=== PATIENT | female | born 1955 | race Caucasian/White ===

== ENCOUNTER 2023-08-17 13:48 | Emergency (ER) | payer MEDICARE, SELFPAY ==
[2023-08-17 14:05] VITALS: BP 142/78; PULSE 65; RESP 16; TEMP 36.6; O2SAT 96; BMI 30.6
--- NOTE | 2023-08-17 14:15 | CT_ITS ---
[address] [address] Patient Name: ELIS WU MRN: [id number] date: 1955 Sex: F Assigned Patient Location: ER Current Patient Location: .[facility] Accession/Order Number: [id number] Exam Date: 08/17/2023 14:26 Report Date: 08/17/2023 15:21 At the request of: ANGELA SLOAN Procedure: CT abdomen pelvis wo con EXAM: CT abdomen pelvis wo con HISTORY: right flank pain, r/o stone COMPARISON: 06/12/2019 TECHNIQUE: Axial CT imaging was performed through the abdomen and pelvis without intravenous contrast. Multiplanar reformats were performed. Dose reduction techniques were achieved by using automated exposure control and/or adjustment of mA and/or kV according to patient size and/or use of iterative reconstruction technique. FINDINGS: Lung bases: Lung bases are clear. No pleural effusion. GI upper: Unremarkable. Liver: The liver is cirrhotic in morphology and contour. Gallbladder: No significant abnormality. No cholelithiasis. Biliary system: No intra or extrahepatic biliary ductal dilatation. Spleen: Normal size. Pancreas: Unremarkable. Adrenal glands: Normal adrenal glands. Kidneys/ureters: Normal contours. There is a 0.4 cm nonobstructing left renal stone. There is a 0.4 cm stone in the urinary bladder, at the right UP junction, resulting in mild right hydroureteronephrosis Vessels: No aneurysm. Lymph Nodes: No lymphadenopathy. Small bowel: No wall thickening or dilatation. Colon: No wall thickening or dilatation. Appendix: No findings of appendicitis. Peritoneal cavity: No free fluid or pneumoperitoneum. Lower : Unremarkable. Bones: No acute bony abnormality. Soft tissues: No acute finding. Additional findings: None. CT/CT abdomen pelvis wo con IMPRESSION: 0.4 cm nonobstructing left renal stone. There is a 0.4 cm stone in the urinary bladder, at the right UP junction, resulting in mild right hydroureteronephrosis Cirrhotic liver. . Electronically authenticated by: JACLYN TIDWELL Date: 08/17/2023 15:21
--- NOTE | 2023-08-17 14:15 | ED.GENADUL1 ---
HPI - General Adult General Chief complaint: Abdominal Pain Stated complaint: KIDNEY PAIN Time Seen by Provider: 08/17/23 14:12 Source: patient Mode of arrival: walk-in Limitations: no limitations History of Present Illness HPI narrative: 68-year-old female presents for right low flank pain. It started at 12:30 PM today, just less than two hours. She was at home. She vomited and then the pain went away completely. She has a history of kidney stones. No recent dysuria or hematuria. Related Data Allergies Allergy/AdvReac Type Severity Reaction Status Date / Time No Known Drug Allergies Allergy Verified 08/17/23 14:08 Review of Systems ROS Narrative A ten point review of systems is negative except as noted above. PFSH PFSH Social History Smoking status: Current every day smoker Exam Narrative Exam Narrative: Nurses note and vital signs reviewed and patient is not hypoxic. General: The patient appears well and in no apparent distress. Patient is resting comfortably on cart. Skin: Warm, dry, no pallor noted. There is no rash noted. Head: Normocephalic, atraumatic Eye: Normal conjunctiva, no drainage Ears, Nose, Mouth, and Throat: oral mucosa is moist. Nares patent. Cardiovascular: Regular Rate and Rhythm Respiratory: Patient is in no distress, no accessory muscle use, lungs are clear to auscultation, no wheezing, rales or rhonchi Back: non-tender, no CVA tenderness bilaterally to percussion. GI: soft and nontender Musculoskeletal: The patient has no evidence of calf tenderness, no pitting edema, symmetrical pulses noted bilaterally Neurological: A&O, normal speech Psychiatric: Cooperative Constitutional Vital Signs, click to edit/add: Last Vital Signs Temp 97.9 F 08/17/23 14:05 Pulse 65 08/17/23 14:05 Resp 16 08/17/23 14:05 BP 142/78 H 08/17/23 14:05 Pulse Ox 96 08/17/23 14:05 O2 Del Method Room Air 08/17/23 14:05 Course Vital Signs Vital signs: Vital Signs Temperature 97.9 F 08/17/23 14:05 Pulse Rate 65 08/17/23 14:05 Respiratory Rate 16 08/17/23 14:05 Blood Pressure 142/78 H 08/17/23 14:05 Pulse Oximetry 96 08/17/23 14:05 Oxygen Delivery Method Room Air 08/17/23 14:05 Temperature 97.9 F 08/17/23 14:05 Pulse Rate 65 08/17/23 14:05 Respiratory Rate 16 08/17/23 14:05 Blood Pressure 142/78 H 08/17/23 14:05 Pulse Oximetry 96 08/17/23 14:05 Oxygen Delivery Method Room Air 08/17/23 14:05 Medical Decision Making MDM Narrative Medical decision making narrative: CAT scan shows 4 mm stone in the urinary bladder. She is asymptomatic and is able to be discharged home. Treatment diagnosis and follow-up were discussed with the patient. Differential Diagnosis Differential Diagnosis: kidney stone, urinary tract infection Lab Data Lab results reviewed: Yes I reviewed the patient's lab results Labs: Lab Results 08/17/23 Range/Units 14:35 Urine Color Yellow (YELLOW) Urine Clarity Slightly cloudy A (CLEAR) Urine pH 6.0 (5.0-9.0) Ur Specific [place] 1.020 (1.005-1.025) Urine Protein Negative (NEG/TRACE) mg/dL Urine Glucose (UA) Negative (NEGATIVE) mg/dL Urine Ketones Trace A (NEGATIVE) mg/dL Urine Occult Blood Large A (NEGATIVE) Urine Nitrite Positive A (NEGATIVE) Urine Bilirubin Negative (NEGATIVE) Urine Urobilinogen 0.2 (0.2-1.0) EU/dL Ur Leukocyte Esterase Negative (NEGATIVE) Urine RBC 20-50 A (0-2) #/HPF Urine WBC 2-5 A (NONE SEEN) #/HPF Ur Squamous Epith Cells Few A (NONE/RARE) #/LPF Urine Crystals None seen (None Seen) #/HPF Urine Bacteria Small A (NONE SEEN) #/HPF Urine Casts None seen (NONE SEEN) #/LPF Urine Mucus None seen (NONE SEEN) Imaging Data CT scan - abdomen: Radiologist's impression: ITS Impressions Abdomen/Pelvis CT 08/17/23 14:15 IMPRESSION: 0.4 cm nonobstructing left renal stone. There is a 0.4 cm stone in the urinary bladder, at the right UP junction, resulting in mild right hydroureteronephrosis Cirrhotic liver. . Electronically authenticated by: JACLYN TIDWELL Date: 08/17/2023 15:21 Discharge Plan Discharge Chief Complaint: Abdominal Pain Clinical Impression: Calculus of kidney Patient Disposition: Home, Self-Care Time of Disposition Decision: 15:50 Condition: Good Mode of Transportation: Private Vehicle Instructions: Kidney Stones (ED) Additional Instructions: follow-up with Dr. Leonard as needed Stand Alone Forms: Portal Instructions Referrals: Physician,Non-Staff, MD [Primary Care Provider] - 1 week
[2023-08-17 14:43] LABS: Bilirubin Urine NEGATIVE (NEGATIVE); Blood Urine LARGE (NEGATIVE); Color Urine YELLOW (YELLOW); Glucose Urine UA NEGATIVE (NEGATIVE); Ketones Urine TRACE mg/dL (NEGATIVE); Leukocyte Esterase Urine NEGATIVE (NEGATIVE); Nitrite Urine POSITIVE (NEGATIVE); Protein Urine NEGATIVE (NEG/TRACE); Urobilinogen Urine 0.2 EU/dL (0.2-1.0)
[2023-08-17 14:48] LABS: Clarity Urine SLIGHTLY CLOUDY (CLEAR)
[2023-08-17 14:50] LABS: Bacteria Urine SMALL #/HPF (NONE SEEN); Cast Seen? NONE SEEN #/LPF (NONE SEEN); Crystals Seen? None Seen #/HPF (None Seen); Mucus Urine NONE SEEN (NONE SEEN); RBC Urine 20-50 #/HPF (0-2); Squamous Epithelial Cell Urine FEW #/LPF (NONE/RARE)
== END 2023-08-17 15:54 | disposition home or self-care (01) ==
PROVIDERS: Emergency Provider Emergency Medicine
DX: N20.0 Calculus of kidney (principal); F17.210 Nicotine dependence, cigarettes, uncomplicated
CPT/HCPCS: 74176; 81001; 99284

== ENCOUNTER 2023-11-27 10:03 | Outpatient (OUT) | payer MEDICARE, SELFPAY ==
--- OUTSIDE RECORDS SUMMARY | 2023-11-27 10:17 | XMS_ITS | CCD ---
Author Organization [facility] Care Team Providers Care Fire Extinguisher Repairer Inspector Name Role Phone NOMI, DR DUSTIN Stovall Attending Unavailable ALMAZAN, DR DUSTIN Stovall Admitting Unavailable ALMAZAN, DR DUSTIN Stovall Primary Care Unavailable ALMAZAN, DR DUSTIN Stovall Consulting Unavailable WEST, DR ELIEL Mtata Consulting Unavailable ALMAZAN, DR DUSTIN Stovall Attending Unavailable ALMAZAN, DR DUSTIN Stovall Admitting Unavailable ALMAZAN, DR DUSTIN Stovall Primary Care Unavailable ALMAZAN, DR DUSTIN Stovall Consulting Unavailable ALMAZAN, DR DUSTIN Stovall Attending Unavailable ALMAZAN, DR DUSTIN Stovall Admitting Unavailable ALMAZAN, DR DUSTIN Stovall Primary Care Unavailable ALMAZAN, DR DUSTIN Stovall Consulting Unavailable HA, ANGELICA Attending Unavailable JUSTUS HAMPTON Consulting Unavailable HA, ANGELICA Admitting Unavailable ALMAZAN, DR DUSTIN Stovall Primary Care Unavailable ALMAZAN, DR DUSTIN Stovall Admitting Unavailable ALMAZAN, DR DUSTIN Stovall Primary Care Unavailable ALMAZAN, DR DUSTIN Stovall Attending Unavailable ALMAZAN, DR DUSTIN Stovall Consulting Unavailable ALMAZAN, DR DUSTIN Stovall Admitting Unavailable ALMAZAN, DR DUSTIN Stovall Primary Care Unavailable ALMAZAN, DR DUSTIN Stovall Consulting Unavailable ALMAZAN, DR DUSTIN Stovall Attending Unavailable Mechelle, Patricia Mcmanus Attending Unavailable Mechelle, Patricia Mcmanus Attending Unavailable Mechelle, Patricia Mcmanus Attending Unavailable Problems Active Problems Problem Classification Problem Date Documented Da te Episodic/Chronic Diabetes mellitus with complications (4 sources) Type 2 diabetes mellitus with unspecified complications; Translations: [TYPE 2 DM W/UNS COMPLICATIONS] Onset: 08-08-2021 Chronic Essential hypertension (5 sources) Essential (primary) hypertension; Translations: [ESSENTIAL PRIMARY HYPERTENSION] Onset: 07-31-2021 Chronic Heart valve disorders (1 source) Nonrheumatic mitral (valve) prolapse; Translations: [NONRHEUMATIC MITRAL VALVE PROLAPSE] Onset: 08-05-2021 Chronic Other aftercare (1 source) Other 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; Translations: [OTH SHELTER CURRENT DRUG THERAPY] Onset: 06-05-2022 Episodic Other skin disorders (3 sources) Localized swelling, mass and lump, neck; Translations: [LOCALIZED SWELLING MASS AND LUMP NECK] Onset: 06-03-2022 Episodic Other skin disorders (1 source) Sebaceous cyst; Translations: [SEBACEOUS CYST] Onset: 06-05-2022 Episodic Substance-related disorders (1 source) Nicotine dependence, cigarettes, uncomplicated; Translations: [NICOTINE DEPEND CIGARETTES UNCOMP] Onset: 06-05-2022 Chronic Past or Other Problems Problem Classification Problem Date Documented Da te Episodic/Chronic Administrative/social admission (1 source) Dietary counseling and surveillance; Translations: [DIETARY COUNSELING AND SURVEILLANCE] Onset: 08-28-2021 Episodic Diabetes mellitus without complication (4 sources) Prediabetes; Translations: [PREDIABETES] Onset: 08-24-2021 Episodic Other screening for suspected conditions (not mental disorders or infectious disease) (4 sources) Other specified abnormal findings of blood chemistry; Translations: [OTH SPEC ABNORMAL FINDINGS BLD CHEM] Onset: 08-13-2021 Episodic Results Test Name Value Interpretation Reference Range Facility [facility] 12-24-2022 Lab Reports [id number] .[id number]:127 Normal [facility] Family Medicine Office/Clini c Noteon 12-16-2022 Family Medicine Office/Clinic Note Chief Complaint est HPI Staff Establish Care: History: Last provider: Dr Almazan Any recent labs: due Health Maintenance UTD: Colonoscopy: due Mammogram: due Pelvic/Pap: due Acute: Current issues/complaints: none Patient is here for follow up on hypertension. How often are you checking your blood pressure? Daily What are your average readings? unsure Do you have any of the following symptoms? Chest Pain? no Palpitations? no SINGER/SOB? no Headache? no Peripheral Edema? no Light Headedness? no Yearly BMP: due Refill needed?: yes History of Present Illness pt presents today to establish care. needs refills on labs Review of Systems PHQ Score Initial Depression Screen Score: 0 ROS - Provider Constitutional: no fever, no chills, no sweats, no fatigue Respiratory: no shortness of breath, no cough, no orthopnea, no wheezing. Cardiovascular: no chest pain, no palpitations, no edema. Neurologic: no headache, no dizziness, no numbness, no weakness. Physical Exam Vitals & Measurements HR: 61(Peripheral) BP: 140/80 SpO2: 80% HT: 64 in HT: 162 cm WT: 84.3 kg WT: 185.46 lb BMI: 32.12 General: alert, no acute distress ENMT: oral mucosa moist, no pharyngeal erythema or exudate Cardiovascular: regular rate and rhythm, normal peripheral perfusion Respiratory: Lungs CTA, respirations non labored Extremities: no deformity, no trauma Neurological: oriented x 4, LOC appropriate for age, CN II-XII intact, motor strength equal & normal bilaterally, speech normal Assessment/Plan 1. Wellness examination (Z00.00: Encounter for general adult medical examination without abnormal findings) pt presents today for wellness exam. She has not had labs since last July. HGBA1C was 6.2 July of 2021. Pt has not had a mammogram or colonoscopy. Lab orders provided as well as mammogram order. pt to return in a couple months for well woman exam with pap test. all questions answered. Ordered: CBC w/ Auto Diff Cologuard Screening Test Comprehensive Metabolic Panel HgbA1c Lipid Panel MA Mamm Screen w/CAD if perf and 3D Adriel Thyroid Stimulating Hormone 2. Pre-diabetes (R73.03: Prediabetes) Pt has been checking her blood sugar and are never above 116 Ordered: CBC w/ Auto Diff Comprehensive Metabolic Panel HgbA1c Lipid Panel MA Mamm Screen w/CAD if perf and 3D Adriel Thyroid Stimulating Hormone 3. Breast cancer screening (Z12.39: Encounter for other screening for malignant neoplasm of breast) has not had a mammogram in many years. order given Ordered: CBC w/ Auto Diff Comprehensive Metabolic Panel HgbA1c Lipid Panel MA Mamm Screen w/CAD if perf and 3D Adriel Thyroid Stimulating Hormone 4. Colon cancer screening (Z12.11: Encounter for screening for malignant neoplasm of colon) cologuard ordered Ordered: Cologuard Screening Test 5. BMI 32.0-32.9,adult (Z68.32: Body mass index [BMI] 32.0-32.9, adult) BMI education complete Ordered: CBC w/ Auto Diff Comprehensive Metabolic Panel HgbA1c Lipid Panel MA Mamm Screen w/CAD if perf and 3D Adriel Thyroid Stimulating Hormone 6. Smoker (F17.200: Nicotine dependence, unspecified, uncomplicated) consider not smoking Ordered: CBC w/ Auto Diff Comprehensive Metabolic Panel HgbA1c Lipid Panel MA Mamm Screen w/CAD if perf and 3D Adriel Thyroid Stimulating Hormone Orders: bisoprolol-hydrochlor othiazide, 1 tab(s), Oral, Daily, 90 tab(s), Refill(s) 3, [facility], 162, cm, 12/03/22 10:59:00 EDT, Height/Length Dosing, 84.3, kg, 12/03/22 10:59:00 EDT, Weight Dosing Follow-up No qualifying data available Problem List/Past Medical History Ongoing Hydronephrosis with obstructing calculus Renal cyst Renal stone Historical panic attacks Procedure/Surgical History C section. Medications bisoprolol-hydrochlor othiazide 5 mg-6.25 mg Tab, 1 tab(s), Oral, Daily, 3 refills sertraline 25 mg Tab, 12.5 mg= 0.5 tab(s), Oral, Daily Allergies No Known Allergies Social History Alcohol - Low Risk, 08/02/2019 Current, 1-2 times per month, 07/05/2019 Substance Abuse - Denies Substance Abuse, 08/02/2019 Tobacco - Medium Risk, 08/02/2019 5-9 cigarettes (between 1/4 to 1/2 pack)/day in last 30 days Tobacco Use:. Never Smokeless Tobacco Use:., 12/03/2022 Hypertension diagnosis to be added I10. refills sent to pharmacy [facility] Comment on above: Result Comment: Elec tronically Signed By: Patricia Gomes\.br\Date and Time Signed: 12/16/22 11:26 EDT Ambulatory Visit Summaryon 0 12-03-2022 Ambulatory Visit Summary DIANAELIS STEPHENS Adi :1955 Visit Date:12/03/2022 Ambulatory Visit Instructions Your Diagnosis Wellness examination Pre-diabetes Breast cancer screening Colon cancer screening BMI 32.0-32.9,adult Smoker Tests Performed MA Mamm Screen w/CAD if perf and 3D Adriel -- Results Pending -- Please visit your patient portal for your results or contact your primary care physician. Your Care Team Attending Physician - Patricia Gomes Primary Care Physician - Patricia Gomes This Is Your Medications List bisoprolol-hydrochlor othiazide (bisoprolol-hydrochlo rothiazide 5 mg-6.25 mg Tab) sertraline (sertraline 25 mg Tab) Procedures Performed C section. Discharge Vitals Heart Rate (Peripheral) 61 Blood Pressure 140/80 Height 162 cm Height 64 in Weight 84.3 kg Weight 185.46 lb BMI 32.12 Medications What How Much When Instructions Changed bisoprolol-hydrochlor othiazide (bisoprolol-hydrochlo rothiazide 5 mg-6.25 mg Tab) 1 Tablets By Mouth Every day Pickup at [facility] Unchanged sertraline (sertraline 25 mg Tab) 0.5 Tablets By Mouth Every day Pharmacy Information [facility]: [address], [place] [phone] [phone] Allergies No Known Allergies Problems Ongoing - Any problem that you are currently receiving treatment for. Hydronephrosis with obstructing calculus Renal cyst Renal stone Historical - Any problem that you are no longer receiving treatment for. panic attacks Normal [facility] HEPATITIS PANEL, ACUTEon HBsAg Screen Negative Normal Negative [facility] Comment on above: Performed By: #### H EPACUT #### [facility] [address] [address] [address] Lobo Flowers Hep A Ab, IgM Negative Normal Negative [facility] Comment on above: Performed By: #### H EPACUT #### [facility] [address] [address] [address] Lobo Flowers Hep B Core Ab, IgM Negative Normal Negative [facility] Comment on above: Performed By: #### H EPACUT #### [facility] [address] [address] [address] Lobo Flowers Hep C Virus Ab <0.1 Normal 0.0-0.9 [facility] Comment on above: Result Comment: Nega tive: < 0.8 Indeterminate: 0.8 - 0.9 Positive: > 0.9 . The CDC recommends that a positive HCV antibody result be followed up with a HCV Nucleic Acid Amplification test (850165). Effective October 08, 2021 Hepatitis Panel (4) will be made non-orderable. [facility] offers order code [id number] Acute Hepatitis. Performed By: #### H EPACUT #### [facility] [address] [address] [address] Lobo Flowers US SINGLE QUAD RT UPPERon US SINGLE QUAD RT UPPER EXAMINATION: US SINGLE QUAD RT UPPER HISTORY: Liver function tests abnormal COMPARISON: 06/12/2019 FINDINGS: The liver is normal in size and contour. Increase in hepatic echotexture. No focal mass. Normal hepatopedal flow within the main portal vein with velocity of 16 cm/s The gallbladder is mildly distended. The wall measures 2.5 mm. Negative sonographic Chance's sign. No cholelithiasis or pericholecystic fluid, bile duct measures 3 mm, normal. Visualized pancreas is normal in appearance The right kidney is normal in size and contour measuring 10.4 x 5.3 x 4.4 cm. Area of anechoic echogenicity measuring 1.3 x 1.3 x 1.2 cm, mid pole, simple cortical cyst. No solid mass or hydronephrosis IMPRESSION: Increase in hepatic echotexture, consider hepatic steatosis 1.3 cm right renal simple cortical cyst Electronically authenticated by: ELIEL ELLER Date: 2021-08-13 07:58 Normal [facility] GLYCOHEMOGLOBIN A1Con 2021 ADA RECOMMENDATION ADA THERAPEUTIC TARGET 6.0 - 7.0 ACTION SUGGESTED > 7.0 Normal [facility] Comment on above: Performed By: #### A 1C #### [facility] [address] [place] [address] Dr. Lobo Flowers Glucose [Mass/Vol] 131 mg/dL Normal [facility] Comment on above: Performed By: #### A 1C #### [facility] [address] [address] [address] Lobo Flowers HbA1c (Bld) [Mass fraction] 6.2 % Critically high <=6.0 [facility] Comment on above: Performed By: #### A 1C #### [facility] [address] [place] [address] Dr. Lobo Flowers CBC AUTO DIFFon 07-31-2021 BASO # 0.1 103/ul Normal 0.0-0.1 [facility] Comment on above: Performed By: #### C BC #### [facility] [address] [place] [address] Dr. Lobo Flowers Basophils/100 WBC (Bld) 0.9 % Normal 0.2-2.0 [facility] Comment on above: Performed By: #### C BC #### [facility] [address] [place] [address] Dr. Lobo Flowers EO # 0.5 103/ul Normal 0.0-0.7 [facility] Comment on above: Performed By: #### C BC #### [facility] [address] [place] [address] Dr. Lobo Flowers Eosinophils/100 WBC (Bld) 5.7 % Normal 0.9-7.0 [facility] Comment on above: Performed By: #### C BC #### [facility] [address] [place] [address] Dr. Lobo Flowers Erythrocyte distribution width (RBC) [Ratio] 13.3 % Normal 11.0-15.0 [facility] Comment on above: Performed By: #### C BC #### [facility] [address] [place] [address] Dr. Lobo Flowers Hematocrit (Bld) [Volume fraction] 44.7 % Normal 36.0-48.0 [facility] Comment on above: Performed By: #### C BC #### [facility] [address] [place] [address] Dr. Lobo Flowers Hemoglobin (Bld) [Mass/Vol] 14.6 g/dL Normal 12.0-16.0 [facility] Comment on above: Performed By: #### C BC #### [facility] [address] [place] [address] Dr. Lobo Flowers IG # 0.02 10e3/ul Normal 0.00-0.03 [facility] Comment on above: Performed By: #### C BC #### [facility] [address] [place] [address] Dr. Lobo Flowers IG % 0.2 % Normal 0.0-0.5 [facility] Comment on above: Performed By: #### C BC #### [facility] [address] [place] [address] Dr. Lobo Flowers LYMPH # 3.1 103/ul Normal 1.2-3.8 [facility] Comment on above: Performed By: #### C BC #### [facility] [address] [place] [address] Dr. Lobo Flowers Lymphocytes/100 WBC (Bld) 36.4 % Normal 20.5-60.0 [facility] Comment on above: Performed By: #### C BC #### [facility] [address] [place] [address] Dr. Lobo Flowers MANUAL DIFF REQ NO Normal [facility] Comment on above: Performed By: #### C BC #### [facility] [address] [place] [address] Dr. Lobo Flowers MCH (RBC) [Entitic mass] 29.7 pg Normal 26.7-34.0 [facility] Comment on above: Performed By: #### C BC #### [facility] [address] [place] [address] Dr. Lobo Flowers MCHC (RBC) [Mass/Vol] 32.7 g/dL Normal 29.9-35.2 [facility] Comment on above: Performed By: #### C BC #### [facility] [address] [place] [address] Dr. Lobo Flowers MCV (RBC) [Entitic vol] 90.9 fL Normal 81.0-99.0 [facility] Comment on above: Performed By: #### C BC #### [facility] [address] [place] [address] Dr. Lobo lFowers MONO # 0.7 103/ul Normal 0.3-0.8 [facility] Comment on above: Performed By: #### C BC #### [facility] [address] [place] [address] Dr. Lobo Flowers Monocytes/100 WBC (Bld) 8.5 % Normal 1.7-12.0 [facility] Comment on above: Performed By: #### C BC #### [facility] [address] [place] [address] Dr. Lobo Flowers NEUT # 4.1 103/ul Normal 1.4-6.5 [facility] Comment on above: Performed By: #### C BC #### [facility] [address] [place] [address] Dr. Lobo Flowers Neutrophils/100 WBC (Bld) 48.3 % Normal 43.0-75.0 [facility] Comment on above: Performed By: #### C BC #### [facility] [address] [place] [address] Dr. Lobo Flowers Platelet mean volume (Bld) [Entitic vol] 9.9 fL Normal 9.5-13.5 [facility] Comment on above: Performed By: #### C BC #### [facility] [address] [place] [address] Dr. Lobo Flowers PLT 206 103/ul Normal 150-450 [facility] Comment on above: Performed By: #### C BC #### [facility] [address] [place] [address] Dr. Lobo Flowers RBC 4.92 106/ul Normal 4.20-5.40 [facility] Comment on above: Performed By: #### C BC #### [facility] [address] [place] [address] Dr. Lobo Flowers WBC 8.6 103/ul Normal 4.0-11.0 [facility] Comment on above: Performed By: #### C BC #### [facility] [address] [place] [address] Dr. Lobo Flowers LIPID PROFILEon 07-31-2021 CHOL-HDL RATIO NORM SEE BELOW Normal [facility] Comment on above: Result Comment: 3.3 - 4.4 LOW RISK 4.4 - 7.1 AVERAGE RISK 7.1 - 11.0 MODERATE RISK >11.0 HIGH RISK Performed By: #### C MP, LIPID #### [facility] [address] [place] [address] Dr. Lobo Flowers Cholesterol [Mass/Vol] 210 mg/dL Critically high <=200 [facility] Comment on above: Performed By: #### C MP, LIPID #### [facility] [address] [address] [address] Lobo Flowers Cholesterol in HDL [Mass/Vol] 41 mg/dL Normal [facility] Comment on above: Performed By: #### C MP, LIPID #### [facility] [address] [address] [address] Lobo Flowers Cholesterol in LDL [Mass/Vol] 143.8 mg/dL Normal [facility] Comment on above: Performed By: #### C MP, LIPID #### [facility] [address] [address] [address] Lobo Flowers Cholesterol.total/Cho lesterol in HDL [Mass ratio] 5.1 {ratio} Normal [facility] Comment on above: Performed By: #### C MP, LIPID #### [facility] [address] [address] [address] Lobo Flowers HDL NORMAL > or = 60 mg/dl - LO W CARDIOVASCULAR RISK <40 mg/dl - HIGH CARDIOVASCULAR RISK Normal [facility] Comment on above: Performed By: #### C MP, LIPID #### [facility] [address] [place] [address] Dr. Lobo Flowers LDL CALC NORMAL SEE BELOW Normal [facility] Comment on above: Result Comment: <100 mg/dl OPTIMAL 100 - 129 mg/dl NEAR OR ABOVE OPTIMAL 130 - 159 mg/dl BORDERLINE HIGH 160 - 189 mg/dl HIGH >190 mg/dl VERY HIGH Performed By: #### C MP, LIPID #### [facility] [address] [address] [address] Lobo Flowers Triglyceride [Mass/Vol] 126 mg/dL Normal <=150 [facility] Comment on above: Performed By: #### C MP, LIPID #### [facility] [address] [address] [address] Lobo Flowers VLDL CALC 25.2 mg/dL Normal [facility] Comment on above: Performed By: #### C MP, LIPID #### [facility] [address] [address] [address] Lobo Flowers PROF 14(COMP METB)on 022 Albumin [Mass/Vol] 3.4 g/dL Critically low 3.5-5.0 [facility] Comment on above: Performed By: #### C MP, LIPID #### [facility] [address] [address] [address] Lobo Flowers Albumin/Globulin [Mass ratio] 0.7 {ratio} Normal [facility] Comment on above: Performed By: #### C MP, LIPID #### [facility] [address] [address] [address] Lobo Flowers ALP [Catalytic activity/Vol] 104 U/L Normal 38-126 [facility] Comment on above: Performed By: #### C MP, LIPID #### [facility] [address] [address] [address] Lobo Flowers ALT [Catalytic activity/Vol] 58 U/L Critically high 9-52 [facility] Comment on above: Performed By: #### C MP, LIPID #### [facility] [address] [address] [address] Lobo Flowers Anion gap [Moles/Vol] 10.4 mmol/L Normal [facility] Comment on above: Performed By: #### C MP, LIPID #### [facility] [address] [address] [address] Lobo Flowers AST [Catalytic activity/Vol] 59 U/L Critically high 14-36 [facility] Comment on above: Performed By: #### C MP, LIPID #### [facility] [address] [address] [address] Lobo Flowers Bilirubin [Mass/Vol] 0.7 mg/dL Normal 0.2-1.3 [facility] Comment on above: Performed By: #### C MP, LIPID #### [facility] [address] [address] [address] Lobo Flowers Calcium [Mass/Vol] 10.7 mg/dL Critically high 8.4-10.2 [facility] Comment on above: Performed By: #### C MP, LIPID #### [facility] [address] [address] [address] Lobo Flowers Chloride [Moles/Vol] 99 mmol/L Normal 98-107 [facility] Comment on above: Performed By: #### C MP, LIPID #### [facility] [address] [address] [address] Lobo Flowers CO2 [Moles/Vol] 32.4 mmol/L Critically high 22.0-30.0 [facility] Comment on above: Performed By: #### C MP, LIPID #### [facility] [address] [address] [address] Lobo Flowers Creatinine [Mass/Vol] 0.78 mg/dL Normal 0.52-1.04 [facility] Comment on above: Performed By: #### C MP, LIPID #### [facility] [address] [place] [address] Dr. Lobo Flowers EGFR-AF BANGLADESHI >60 Normal >=60 [facility] Comment on above: Performed By: #### C MP, LIPID #### [facility] [address] [address] [address] Lobo Flowers EGFR-NON AF BANGLADESHI >60 Normal >=60 [facility] Comment on above: Performed By: #### C MP, LIPID #### [facility] [address] [address] [address] Lobo Flowers Globulin (S) [Mass/Vol] 5.0 g/dL Normal [facility] Comment on above: Performed By: #### C MP, LIPID #### [facility] [address] [address] [address] Lobo Flowers Glucose [Mass/Vol] 146 mg/dL Critically high 74-106 [facility] Comment on above: Performed By: #### C MP, LIPID #### [facility] [address] [address] [address] Lobo Flowers Potassium [Moles/Vol] 3.8 mmol/L Normal 3.4-5.0 [facility] Comment on above: Performed By: #### C MP, LIPID #### [facility] [address] [address] [address] Lobo Flowers Protein [Mass/Vol] 8.4 g/dL Critically high 6.1-8.2 [facility] Comment on above: Performed By: #### C MP, LIPID #### [facility] [address] [address] [address] Lobo Flowers Sodium [Moles/Vol] 138 mmol/L Normal 137-145 [facility] Comment on above: Performed By: #### C MP, LIPID #### [facility] [address] [address] [address] Lobo Flowers Urea nitrogen [Mass/Vol] 11.0 mg/dL Normal 7.0-17.0 [facility] Comment on above: Performed By: #### C MP, LIPID #### [facility] [address] [address] [address] Lobo Flowers Urea nitrogen/Creatinine [Mass ratio] 14.1 mg/mg Normal [facility] Comment on above: Performed By: #### C MP, LIPID #### [facility] [address] [address] [address] Lobo Flowers Encounters Encounter Date Encounter Type Care Provider Facility Start: 12-02-2023 ambulatory Patricia L Mechelle Facility: [facility] [place] Start: 03-25-2023 ambulatory Patricia L Mechelle Facility: [facility] [place] Start: 12-03-2022 End: 12-04-2022 ambulatory [facility]helle [facility] Start: 11-25-2022 ambulatory Patricia Mechelle Facility:[facility] [place] Start: 06-03-2022 End: 06-03-2022 ambulatory ANGELICA BONNER Facility:[facility] Start: 08-24-2021 End: 08-25-[address] DUSTIN ALMAZAN Facility:[facility] Start: 08-13-2021 End: 08-14-[address] DUSTIN ALMAZAN Facility:[facility] Start: 08-13-2021 End: 08-14-[address] DUSTIN ALMAZAN Facility:[facility] Start: 08-08-2021 End: 08-09-[address] DUSTIN ALMAZAN Facility:[facility] Start: 07-31-2021 End: 08-01-[address] DUSTIN ALMAZAN Facility:[facility] Payers Date Payer Category Payer Medicare [id number] 1959 Private Health Insurance CLI [id number] 1955 Unknown [id number] 2.16.84 [id number] 1956 Unknown [id number] 2.16.84 0.1.766909.3.579.2.593 1956 Unknown [id number] 2.16.84 0.1.795200.3.579.2.593 1956 Unknown [id number] 2.16.84 0.1.575584.3.579.2.593 1956 Unknown [id number] 2.16.84 0.1.638353.3.579.2.593 1956 Unknown [id number] 2.16.84 0.1.913738.3.579.2.593 1956 Unknown [id number] 2.16.8 40.1.904927.3.579.2.727 1956 Unknown [id number] 2.16.8 40.1.069522.3.579.2.727 1956 Unknown [id number] 2.16.8 40.1.826671.3.579.2.727 Summary Purpose Family History No Family History Records FoundNo Family History Records Found Advance Directives No Advanced Directives Records FoundNo Advanced Directives Records Found Additional Source Comments INFORMATION SOURCE (unrecogn ized section and content) DATE CREATED AUTHOR 06/05/2022 [facility] DATE CREATED AUTHOR AUTHOR'S ORGANIZ ATION 11/25/2023 [facility] FOR RECORDS PERTAINING TO PATIENTS WHO ARE OR HAVE BEEN ENROLLED IN A CHEMICAL DEPENDENCY/SUBSTANCEABUSE PROGRAM, SOME INFORMATION MAY BE OMITTED. This clinical summary was aggregated from multiple sources. Caution should be exercised in using it in the provision of clinical care. This summary normalizes information from multiple sources, and as a consequence, information in this document may materially change the coding, format and clinical context of patient data. In addition, data may be omitted in some cases. CLINICAL DECISIONS SHOULD BE BASED ON THE PRIMARY CLINICAL RECORDS. [facility]. provides no warranty or guarantee of the accuracy or completeness of information in this document.
[2023-11-27 11:07] LABS: Basophils Absolute Auto 0.1 10^3/uL (0.0-0.1); Basophils Percent Auto 1.1 % (0.2-2.0); Eosinophils Absolute Auto 0.5 10^3/uL (0.0-0.7); Eosinophils Percent Auto 7.6 % (0.9-7.0); Hematocrit 42.6 % (36.0-48.0); Hemoglobin 14.1 g/dL (12.0-16.0); Immature Granulocytes Abs Auto 0.02 10^3/uL (0.00-0.03); Immature Granulocytes Pct Auto 0.3 % (0.0-0.5); Lymphocytes Absolute Auto 2.2 10^3/uL (1.2-3.8); Lymphocytes Percent Auto 34.7 % (20.5-60.0); Mean Corpuscular HGB Conc 33.1 g/dL (29.9-35.2); Mean Corpuscular Hemoglobin 29.9 pg (26.7-34.0); Mean Corpuscular Volume 90.4 fL (81.0-99.0); Mean Platelet Volume 9.9 fL (9.5-13.5); Monocytes Absolute Auto 0.7 10^3/uL (0.3-0.8); Monocytes Percent Auto 10.9 % (1.7-12.0); Neutrophils Absolute Auto 2.9 10^3/uL (1.4-6.5); Neutrophils Percent Auto 45.4 % (43.0-75.0); Platelet Count 175 10^3/uL (150-450); Red Blood Count 4.71 10^6/uL (4.20-5.40); Red Cell Distribution Width 13.1 % (11.0-15.0); White Blood Count 6.3 10^3/uL (4.0-11.0)
[2023-11-27 11:26] LABS: Alanine Aminotransferase 36 U/L (14-59); Albumin Globulin Ratio 0.8; Albumin Level 3.4 g/dL (3.4-5.0); Alkaline Phosphatase 90 U/L (46-116); Anion Gap 10.1; Aspartate Amino Transferase 27 U/L (15-37); Bilirubin Total 1.1 mg/dL (0.2-1.0); Calcium 10.4 mg/dL (8.5-10.1); Carbon Dioxide 29.7 mmol/L (21.0-32.0); Chloride 104 mmol/L (98-107); Chol HDL Ratio 4.2; Cholesterol 197 mg/dL (<=200); Estimated GFR (African America >60 (>=60); Estimated GFR (Non-African Ame >60 (>=60); Globulin 4.5 g/dL; Glucose 108 mg/dL (74-106); HDL Cholesterol 47 mg/dL (40-60); LDL Cholesterol Calculated 127.8 mg/dL; Potassium 3.8 mmol/L (3.5-5.1); Sodium 140 mmol/L (136-145); Thyroid Stimulating Hormone 4.628 uIU/mL (0.358-3.740); Total Protein 7.9 g/dL (6.4-8.2); Triglycerides 111 mg/dL (<=150); VLDL CHOLESTEROL 22.2 mg/dL
== END 2023-11-27 10:04 | disposition home or self-care (01) ==
LOC: LAB 10:07
PROVIDERS: Visit Provider Nurse Practitioner
DX: Z00.00 Encounter for general adult medical examination without abnormal findings (principal)
CPT/HCPCS: 36415; 80053; 80061; 84443; 85025

== ENCOUNTER 2024-01-04 10:11 | Emergency (ER) | payer MEDICARE, SELFPAY ==
--- NOTE | 2024-01-04 10:16 | XR_ITS ---
The [address] [address] Patient Name: ELIS WU MRN: [id number] date: 1955 Sex: F Assigned Patient Location: ER Current Patient Location: ER Accession/Order Number: [id number] Exam Date: 01/04/2024 10:23 Report Date: 01/04/2024 11:08 At the request of: LEXII GREEN Procedure: XR ankle LT min 3V PROCEDURE: XR ankle LT min 3V, 01/04/2024 10:23 AM EDT CLINICAL INDICATIONS: Left ankle pain, injury, previous fracture COMPARISON: 03/06/2021 TECHNIQUE: Left ankle, 3 views FINDINGS: Remote distal fibular metaphysis fracture with bridging callus is seen. Minimal residual lucency is present near the fracture although similar in morphology to prior. Convincing superimposed acute fracture is not demonstrated. Remaining osseous structures are intact. Ossific irregularity involving the anterior process of the distal tibia is similar to previous exam and may relate to previous traumatic deformity as well. Moderate ankle osteoarthrosis is noted. Calcaneal enthesopathy noted. Well-corticated ossicle medial tibiotalar joint level is stable, considered remote. Ankle mortise intact. Ankle effusion is seen. XR/XR ankle LT min 3V IMPRESSION: 1. Remote traumatic deformity of the distal fibula, anterior tibial articular margin. Convincing superimposed fracture is not evident. If pain persists follow-up imaging may be helpful for confirmation. 2. 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 Osteoarthrosis 4. Joint effusion, anterior lateral soft tissue swelling 5. Calcaneal enthesopathy Electronically authenticated by: GIL ARIAS Date: 01/04/2024 11:08
--- OUTSIDE RECORDS SUMMARY | 2024-01-04 10:16 | XMS_ITS | CCD ---
Author Organization [facility] Care Team Providers Care Vp Integration Name Role Phone NOMI, DR DUSTIN Stovall Attending Unavailable MOSHER, DR DUSTIN Stovall Admitting Unavailable MOSHER, DR DUSTIN Stovall Primary Care Unavailable MOSHER, DR DUSTIN Stovall Consulting Unavailable WEST, DR ELIEL Matta Consulting Unavailable MOSHER, DR DUSTIN Stovall Attending Unavailable MOSHER, DR DUSTIN Stovall Admitting Unavailable MOSHER, DR DUSTIN Stovall Primary Care Unavailable MOSHER, DR DUSTIN Stovall Consulting Unavailable MOSHER, DR DUSTIN Stovall Attending Unavailable MOSHER, DR DUSTIN Stovall Admitting Unavailable MOSHER, DR DUSTIN Stovall Primary Care Unavailable MOSHER, DR DUSTIN Stovall Consulting Unavailable ANGELICA BONNER Attending Unavailable JUSTUS HAMPTON Consulting Unavailable HA, ANGELICA Admitting Unavailable MOSHER, DR DUSTIN Stovall Primary Care Unavailable MOSHER, DR DUSTIN Stovall Admitting Unavailable MOSHER, DR DUSTIN Stovall Primary Care Unavailable MOSHER, DR DUSTIN Stovall Attending Unavailable MOSHER, DR DUSTIN Stovall Consulting Unavailable MOSHER, DR DUSTIN Stovall Admitting Unavailable MOSHER, DR DUSTIN Stovall Primary Care Unavailable MOSHER, DR DUSTIN Stovall Consulting Unavailable MOSHER, DR DUSTIN Stovall Attending Unavailable Mechelle, Patricia [...] 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; 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] Onset: 06-05-2022 Episodic Other [...] Value Interpretation Reference Range Facility [facility] 12-23-2023 Lab Reports [id number] #[id number] Normal [facility] Ambulatory Visit Summaryon 0 12-02-2023 Ambulatory Visit Summary ALTAGRACIA WU Adi :1955 Visit Date:12/02/2023 Ambulatory Visit Instructions Your Diagnosis Hypertension Depression TSH elevation BMI 32.0-32.9,adult Your Care Team Attending Physician - Patricia Gomes Primary Care Physician - Patricia Gomes This Is Your Medications List bisoprolol-hydrochlo rothiazide (bisoprolol-hydrochl orothiazide 5 mg-6.25 mg Tab) sertraline (sertraline 25 mg Tab) Procedures Performed C section. Discharge Vitals Heart Rate (Peripheral) 68 Respiratory Rate 18 Blood Pressure 120/70 Height 162.0 cm Height 64 in Weight 85.05 kg Weight 187.11 lb BMI 32.41 What to do next Scheduled Follow-Up Appointments Friday 1:00 PM EDT Where: [facility] Medicine Marcelino Invalid Interpretation Code Depression [facility] Medicine Office/Clini c Noteon 12-02-2023 Family Medicine Office/Clinic Note HPI Staff Altagracia is a 68 year old female presenting follow up Patient is here for follow up on hypertension. How often are you checking your blood pressure? 1-2 every 2 weeks What are your average readings? 120's-130's/ 8-0's Follow up for Mental Status: Medication adherence- Yes, takes medication as prescribed Suicidal thoughts-Not at this time Most recent PHQ: 5 Needs refill on bisoprolol-HCTZ Would like to go over labs from 11/27/23 had done at [facility] History of Present Illness pt presents today for med refills. Review of Systems PHQ Score Initial Depression Screen Score: 1 SCORE Physical Exam Vitals & Measurements HR: 68(Peripheral) RR: 18 BP: 120/70 SpO2: 98% HT: 64 in HT: 162.0 cm WT: 85.05 kg WT: 187.11 lb BMI: 32.41 General: alert, no acute distress ENMT: oral mucosa moist, no pharyngeal erythema or exudate Cardiovascular: regular rate and rhythm, normal peripheral perfusion Respiratory: Lungs CTA, respirations non labored Extremities: no deformity, no trauma Neurological: oriented x 4, LOC appropriate for age, CN II-XII intact, motor strength equal & normal bilaterally, speech normal Assessment/Plan 1. Hypertension (I10: Essential (primary) hypertension) BP at goal today. will send refills. pt had labs done at [facility]. discussed those results today. TSH was slightly elevated but pt is not having any symptoms at all. will recheck at AM[facility] visit in February all questions answered. RTC 1 year Ordered: nicotine, 1 patch(es), Topical, Daily, 30 EA, Refill(s) 0, [facility], 162, cm, 12/02/23 11:18:00 EDT, Height/Length Dosing, 85, kg, 12/02/23 11:18:00 EDT, Weight Dosing nicotine, 1 patch(es), Topical, Daily, 30 EA, Refill(s) 0, [facility], 162, cm, 12/02/23 11:18:00 EDT, Height/Length Dosing, 85, kg, 12/02/23 11:18:00 EDT, Weight Dosing nicotine, 1 patch(es), Topical, Daily for 30 day(s), 30 patch(es), Refill(s) 0, [facility], 162, cm, 12/02/23 11:18:00 EDT, Height/Length Dosing, 85, kg, 12/02/23 11:18:00 EDT, Weight Dosing nitrofurantoin, 100 mg = 1 cap(s), Oral, BID, X 7 day(s), # 14 cap(s), Refills(s) 0, Pharmacy: [facility], 162, cm, 12/02/23 11:18:00 EDT, Height/Length Dosing, 85, kg, 12/02/23 11:18:00 EDT, Weight Dosing TSH With T4fr Reflex 2. Depression (F32.A: Depression, unspecified) will send refills. pt doing well Ordered: nicotine, 1 patch(es), Topical, Daily, 30 EA, Refill(s) 0, [facility], 162, cm, 12/02/23 11:18:00 EDT, Height/Length Dosing, 85, kg, 12/02/23 11:18:00 EDT, Weight Dosing nicotine, 1 patch(es), Topical, Daily, 30 EA, Refill(s) 0, [facility], 162, cm, 12/02/23 11:18:00 EDT, Height/Length Dosing, 85, kg, 12/02/23 11:18:00 EDT, Weight Dosing nicotine, 1 patch(es), Topical, Daily for 30 day(s), 30 patch(es), Refill(s) 0, [facility], 162, cm, 12/02/23 11:18:00 EDT, Height/Length Dosing, 85, kg, 12/02/23 11:18:00 EDT, Weight Dosing nitrofurantoin, 100 mg = 1 cap(s), Oral, BID, X 7 day(s), # 14 cap(s), Refills(s) 0, Pharmacy: [facility], 162, cm, 12/02/23 11:18:00 EDT, Height/Length Dosing, 85, kg, 12/02/23 11:18:00 EDT, Weight Dosing TSH With T4fr Reflex 3. TSH elevation (R79.89: Other specified abnormal findings of blood chemistry) TSH slightly elevated. will redraw at AM[facility] visit Ordered: nicotine, 1 patch(es), Topical, Daily, 30 EA, Refill(s) 0, [facility], 162, cm, 12/02/23 11:18:00 EDT, Height/Length Dosing, 85, kg, 12/02/23 11:18:00 EDT, Weight Dosing nicotine, 1 patch(es), Topical, Daily, 30 EA, Refill(s) 0, [facility], 162, cm, 12/02/23 11:18:00 EDT, Height/Length Dosing, 85, kg, 12/02/23 11:18:00 EDT, Weight Dosing nicotine, 1 patch(es), Topical, Daily for 30 day(s), 30 patch(es), Refill(s) 0, [facility], 162, cm, 12/02/23 11:18:00 EDT, Height/Length Dosing, 85, kg, 12/02/23 11:18:00 EDT, Weight Dosing nitrofurantoin, 100 mg = 1 cap(s), Oral, BID, X 7 day(s), # 14 cap(s), Refills(s) 0, Pharmacy: [facility], 162, cm, 12/02/23 11:18:00 EDT, Height/Length Dosing, 85, kg, 12/02/23 11:18:00 EDT, Weight Dosing TSH With T4fr Reflex 4. BMI 32.0-32.9,adult (Z68.32: Body mass index [BMI] 32.0-32.9, adult) BMI education complete Ordered: nicotine, 1 patch(es), Topical, Daily, 30 EA, Refill(s) 0, [facility], 162, cm, 12/02/23 11:18:00 EDT, Height/Length Dosing, 85, kg, 12/02/23 11:18:00 EDT, Weight Dosing nicotine, 1 patch(es), Topical, Daily, 30 EA, Refill(s) 0, [facility], 162, cm, 12/02/23 11:18:00 EDT, Height/Length Dosing, 85, kg, 12/02/23 11:18:00 EDT, Weight Dosing nicotine, 1 patch(es), Topical, Daily for 30 day(s), 30 patch(es), Refill(s) 0, [facility], 162, cm, 12/02/23 11:18:00 EDT, Height/Length Dosing, 85, kg, 12/02/23 11:18:00 EDT, Weight Dosing nitrofurantoin, 100 mg = 1 cap(s), Oral, BID, X 7 day(s), # 14 cap(s), Refills(s) 0, Pharmacy: [facility], 162, cm, 12/02/23 11:18:00 EDT, Height/Length Dosing, 85, (more content not included)... Normal [facility] Comment on above: Result Comment: Elec tronically Signed By: Mechelle DUMAS, Patricia Mcmanus\.br\Date and Time Signed: 12/02/23 12:36 EDT HEPATITIS PANEL, ACUTEon HBsAg Screen Negative Normal Negative [facility] Comment on above: Performed By: #### H EPACUT #### [facility] [address] [address] [address] Lobo Flowers Hep A Ab, IgM Negative Normal Negative [facility] Comment on above: Performed By: #### H EPACUT #### [facility] [address] [address] [address] Lobo Flowers Hep B Core Ab, IgM Negative Normal Negative [facility] Comment on above: Performed By: #### H EPACUT #### [facility] [address] [address] [address] Lobo Flowers Hep C Virus Ab <0.1 Normal 0.0-0.9 [facility] Comment on above: Result Comment: Nega tive: < 0.8 Indeterminate: 0.8 - 0.9 Positive: > 0.9 . The CDC recommends that a positive HCV antibody result be followed up with a HCV Nucleic Acid Amplification test (794590). Effective October 08, 2021 Hepatitis Panel (4) will be made non-orderable. [facility] offers order code [id number] Acute Hepatitis. Performed By: #### H EPACUT #### [facility] [address] [address] [address] Lobo Flowers US SINGLE QUAD RT [...] by: ELIEL ELLER Date: 2021-08-13 07:58 Normal [facility] GLYCOHEMOGLOBIN A1Con 2021 ADA RECOMMENDATION ADA THERAPEUTIC TARGET 6.0 - 7.0 ACTION SUGGESTED > 7.0 Normal [facility] Comment on above: Performed By: #### A 1C #### [facility] [address] [address] [address] Lobo Flowers Glucose [Mass/Vol] 131 mg/dL Normal [facility] Comment on above: Performed By: #### A 1C #### [facility] [address] [address] [address] Lobo Flowers HbA1c (Bld) [Mass fraction] 6.2 % Critically high <=6.0 [facility] Comment on above: Performed By: #### A 1C #### [facility] [address] [address] [address] Lobo Flowers CBC AUTO DIFFon 07-31-2021 BASO # 0.1 103/ul Normal 0.0-0.1 [facility] Comment on above: Performed By: #### C BC #### [facility] [address] [address] [address] Lobo Flowers Basophils/100 WBC (Bld) 0.9 % Normal 0.2-2.0 [facility] Comment on above: Performed By: #### C BC #### [facility] [address] [place] [address] Dr. Lobo Flowers EO # 0.5 103/ul Normal 0.0-0.7 [facility] Comment on above: Performed By: #### C BC #### [facility] [address] [place] [address] Dr. Lobo Flowers Eosinophils/100 WBC (Bld) 5.7 % Normal 0.9-7.0 [facility] Comment on above: Performed By: #### C BC #### [facility] [address] [place] [address] Dr. Lobo Flowers Erythrocyte distribution width (RBC) [Ratio] 13.3 % Normal 11.0-15.0 [facility] Comment on above: Performed By: #### C BC #### [facility] [address] [place] [address] Dr. Lobo Flowers Hematocrit (Bld) [Volume fraction] 44.7 % Normal 36.0-48.0 [facility] Comment on above: Performed By: #### C BC #### [facility] [address] [place] [address] Dr. Lobo Flowers Hemoglobin (Bld) [Mass/Vol] 14.6 g/dL Normal 12.0-16.0 [facility] Comment on above: Performed By: #### C BC #### [facility] [address] [place] [address] Dr. Lobo Flowers IG # 0.02 10e3/ul Normal 0.00-0.03 [facility] Comment on above: Performed By: #### C BC #### [facility] [address] [place] [address] Dr. Lobo Flowers IG % 0.2 % Normal 0.0-0.5 [facility] Comment on above: Performed By: #### C BC #### [facility] [address] [place] [address] Dr. Lobo Flowers LYMPH # 3.1 103/ul Normal 1.2-3.8 [facility] Comment on above: Performed By: #### C BC #### [facility] [address] [place] [address] Dr. Lobo Flowers Lymphocytes/100 WBC (Bld) 36.4 % Normal 20.5-60.0 [facility] Comment on above: Performed By: #### C BC #### [facility] [address] [place] [address] Dr. Lobo Flowers MANUAL DIFF REQ NO Normal [facility] Comment on above: Performed By: #### C BC #### [facility] [address] [place] [address] Dr. Lobo Flowers MCH (RBC) [Entitic mass] 29.7 pg Normal 26.7-34.0 [facility] Comment on above: Performed By: #### C BC #### [facility] [address] [place] [address] Dr. Lobo Flowers MCHC (RBC) [Mass/Vol] 32.7 g/dL Normal 29.9-35.2 [facility] Comment on above: Performed By: #### C BC #### [facility] [address] [place] [address] Dr. Lobo Flowers MCV (RBC) [Entitic vol] 90.9 fL Normal 81.0-99.0 [facility] Comment on above: Performed By: #### C BC #### [facility] [address] [place] [address] Dr. Lobo Flowers MONO # 0.7 103/ul Normal 0.3-0.8 [facility] Comment on above: Performed By: #### C BC #### [facility] [address] [place] [address] Dr. Lobo Flowers Monocytes/100 WBC (Bld) 8.5 % Normal 1.7-12.0 [facility] Comment on above: Performed By: #### C BC #### [facility] [address] [place] [address] Dr. Lobo Flowers NEUT # 4.1 103/ul Normal 1.4-6.5 [facility] Comment on above: Performed By: #### C BC #### [facility] [address] [place] [address] Dr. Lobo Flowers Neutrophils/100 WBC (Bld) 48.3 % Normal 43.0-75.0 [facility] Comment on above: Performed By: #### C BC #### [facility] [address] [address] [address] Lobo Flowers Platelet mean volume (Bld) [Entitic vol] 9.9 fL Normal 9.5-13.5 [facility] Comment on above: Performed By: #### C BC #### [facility] [address] [place] [address] Dr. Lobo Flowers PLT 206 103/ul Normal 150-450 [facility] Comment on above: Performed By: #### C BC #### [facility] [address] [place] [address] Dr. Lobo Flowers RBC 4.92 106/ul Normal 4.20-5.40 [facility] Comment on above: Performed By: #### C BC #### [facility] [address] [place] [address] Dr. Lobo Flowers WBC 8.6 103/ul Normal 4.0-11.0 [facility] Comment on above: Performed By: #### C BC #### [facility] [address] [place] [address] Dr. Lobo Flowers LIPID PROFILEon 07-31-2021 CHOL-HDL RATIO NORM SEE BELOW Normal [facility] Comment on above: Result Comment: 3.3 - 4.4 LOW RISK 4.4 - 7.1 AVERAGE RISK 7.1 - 11.0 MODERATE RISK >11.0 HIGH RISK Performed By: #### C MP, LIPID #### [facility] [address] [place] [address] Dr. Lobo Flowers Cholesterol [Mass/Vol] 210 mg/dL Critically high <=200 [facility] Comment on above: Performed By: #### C MP, LIPID #### [facility] [address] [address] [address] Lobo Flowers Cholesterol in HDL [Mass/Vol] 41 mg/dL Normal [facility] Comment on above: Performed By: #### C MP, LIPID #### [facility] [address] [place] [address] Dr. Lobo Flowers Cholesterol in LDL [Mass/Vol] 143.8 mg/dL Normal [facility] Comment on above: Performed By: #### C MP, LIPID #### [facility] [address] [place] [address] Dr. Lobo Flowers Cholesterol.total/Ch olesterol in HDL [Mass ratio] 5.1 {ratio} Normal [facility] Comment on above: Performed By: #### C MP, LIPID #### [facility] [address] [place] [address] Dr. Lobo Flowers HDL NORMAL > or = 60 mg/dl - LOW CARDIOVASCULAR RISK <40 mg/dl - HIGH CARDIOVASCULAR RISK Normal [facility] Comment on above: Performed By: #### C MP, LIPID #### [facility] [address] [place] [address] Dr. Lobo Flowers LDL CALC NORMAL SEE BELOW Normal [facility] Comment on above: Result Comment: <100 mg/dl OPTIMAL 100 - 129 mg/dl NEAR OR ABOVE OPTIMAL 130 - 159 mg/dl BORDERLINE HIGH 160 - 189 mg/dl HIGH >190 mg/dl VERY HIGH Performed By: #### C MP, LIPID #### [facility] [address] [place] [address] Dr. Lobo Flowers Triglyceride [Mass/Vol] 126 mg/dL Normal <=150 [facility] Comment on above: Performed By: #### C MP, LIPID #### [facility] [address] [place] [address] Dr. Lobo Flowers VLDL CALC 25.2 mg/dL Normal [facility] Comment on above: Performed By: #### C MP, LIPID #### [facility] [address] [place] [address] Dr. Lobo Flowers PROF 14(COMP METB)on 022 Albumin [Mass/Vol] 3.4 g/dL Critically low 3.5-5.0 Th [facility] Comment on above: Performed By: #### C MP, LIPID #### [facility] [address] [address] [address] Lobo Flowers Albumin/Globulin [Mass ratio] 0.7 {ratio} Normal [facility] Comment on above: Performed By: #### C MP, LIPID #### [facility] [address] [address] [address] Lobo Flowers ALP [Catalytic activity/Vol] 104 U/L Normal 38-126 [facility] Comment on above: Performed By: #### C MP, LIPID #### [facility] [address] [place] [address] Dr. Lobo Flowers ALT [Catalytic activity/Vol] 58 U/L Critically high 9-52 [facility] Comment on above: Performed By: #### C MP, LIPID #### [facility] [address] [place] [address] Dr. Lobo Flowers Anion gap [Moles/Vol] 10.4 mmol/L Normal [facility] Comment on above: Performed By: #### C MP, LIPID #### [facility] [address] [place] [address] Dr. Lobo Flowers AST [Catalytic activity/Vol] 59 U/L Critically high 14-36 [facility] Comment on above: Performed By: #### C MP, LIPID #### [facility] [address] [address] [address] Lobo Flowers Bilirubin [Mass/Vol] 0.7 mg/dL Normal 0.2-1.3 [facility] Comment on above: Performed By: #### C MP, LIPID #### [facility] [address] [address] [address] Lobo Flowers Calcium [Mass/Vol] 10.7 mg/dL Critically high 8.4-10.2 T [facility] Comment on above: Performed By: #### C MP, LIPID #### [facility] [address] [address] [address] Lobo Flowers Chloride [Moles/Vol] 99 mmol/L Normal 98-107 [facility] Comment on above: Performed By: #### C MP, LIPID #### [facility] [address] [place] [address] Dr. Lobo Flowers CO2 [Moles/Vol] 32.4 mmol/L Critically high 22.0-30.0 [facility] Comment on above: Performed By: #### C MP, LIPID #### [facility] [address] [address] [address] Lobo Flowers Creatinine [Mass/Vol] 0.78 mg/dL Normal 0.52-1.04 [facility] Comment on above: Performed By: #### C MP, LIPID #### [facility] [address] [place] [address] Dr. Lobo Flowers EGFR-AF CITIZEN [place] >60 Normal >=60 [facility] Comment on above: Performed By: #### C MP, LIPID #### [facility] [address] [place] [address] Dr. Lobo Flowers EGFR-NON AF CITIZEN OF [place] >60 Normal >=60 [facility] Comment on above: Performed By: #### C MP, LIPID #### [facility] [address] [place] [address] Dr. Lobo Flowers Globulin (S) [Mass/Vol] 5.0 g/dL Normal [facility] Comment on above: Performed By: #### C MP, LIPID #### [facility] [address] [place] [address] Dr. Lobo Flowers Glucose [Mass/Vol] 146 mg/dL Critically high 74-106 [facility] Comment on above: Performed By: #### C MP, LIPID #### [facility] [address] [place] [address] Dr. Lobo Flowers Potassium [Moles/Vol] 3.8 mmol/L Normal 3.4-5.0 [facility] Comment on above: Performed By: #### C MP, LIPID #### [facility] [address] [place] [address] Dr. Lobo Flowers Protein [Mass/Vol] 8.4 g/dL Critically high 6.1-8.2 [facility] Comment on above: Performed By: #### C MP, LIPID #### [facility] [address] [address] [address] Lobo Flowers Sodium [Moles/Vol] 138 mmol/L Normal 137-145 [facility] Comment on above: Performed By: #### C MP, LIPID #### [facility] [address] [address] [address] Lobo Flowers Urea nitrogen [Mass/Vol] 11.0 mg/dL Normal 7.0-17.0 [facility] Comment on above: Performed By: #### C MP, LIPID #### [facility] [address] [address] [address] Lobo Flowers Urea nitrogen/Creatinine [Mass ratio] 14.1 mg/mg Normal [facility] Comment on above: Performed By: #### C MP, LIPID #### [facility] [address] [address] [address] Lobo Flowers Encounters Encounter Date Encounter Type Care Provider Facility Start: 03-22-2024 ambulatory Patricia L Mechelle Facility: [facility] [place] Start: 12-02-2023 End: 12-03-2023 ambulatory Patricia L Mechelle Facility:[facility] Start: 03-25-2023 ambulatory Patricia L Mechelle Facility: [facility] [place] Start: 06-03-2022 End: 06-03-2022 ambulatory ANGELICA BONNER Facility:[facility] Start: 08-24-2021 End: 08-25-[address] DUSTIN MOSHER Facility:[facility] Start: 08-13-2021 End: 08-14-[address] DUSTIN MOSHER Facility:[facility] Start: 08-13-2021 End: 08-14-[address] DUSTIN MOSHER Facility:[facility] Start: 08-08-2021 End: 08-09-[address] DUSTIN MOSHER Facility:[facility] Start: 07-31-2021 End: 08-01-[address] DUSTIN MOSHER Facility:[facility] Payers Date Payer Category Payer Medicare [id number] 1958 Private Health Insurance CLI [id number] 1955 Unknown [id number] 2.16.84 [id number] 1955 Unknown [id number] 2.16.84 [id number] 1955 Unknown [id number] 2.16.84 [id number] 1955 Unknown [id number] 2.16.84 [id number] 1955 Unknown [id number] 2.16.84 [id number] 1955 Unknown [id number] 2.16.84 [id number] 1955 Unknown [id number] 2.16.8 [id number] 1955 Unknown [id number] 2.16.8 [id number] 1955 Unknown [id number] 2.16.8 [id number] Summary Purpose Family History No Family History Records FoundNo Family History Records Found Advance Directives No Advanced Directives Records FoundNo Advanced Directives Records Found Additional Source Comments INFORMATION SOURCE (unrecogn ized section and content) DATE CREATED AUTHOR 06/05/2022 [facility] DATE CREATED AUTHOR AUTHOR'S ORGANIZ ATABIMBOLA 12/24/2023 [facility] FOR RECORDS PERTAINING TO PATIENTS WHO [...] BE BASED ON THE PRIMARY CLINICAL RECORDS. [facility]. provides no warranty or guarantee of the accuracy or completeness of information in this document.
[2024-01-04 10:18] VITALS: BP 165/85; PULSE 76; TEMP 37.1; O2SAT 98; BMI 30.8
--- NOTE | 2024-01-04 11:03 | ED_ITS ---
HPI HPI - Extremity Injury (Lower) General Chief Complaint: Extremity Injury, Lower Stated Complaint: LEFT ANKLE INJURY Time Seen by Provider: 01/04/24 10:13 Source: patient Mode of arrival: Wheelchair Limitations: no limitations History of Present Illness HPI Narrative: Patient presents ED complaint of left ankle pain. [place] the last step and tripped. She fell onto her knee left knee and left elbow and also rolled her ankle. She broke the same ankle last year with a fall. No other injury no loss of consciousness no headache no neck pain. Pain and swelling to the lateral malleolus and the ankle Related Data Allergies Allergy/AdvReac Type Severity Reaction Status Date / Time No Known Drug Allergies Allergy Verified 08/17/23 14:08 Opioid HPI Opioid Management Most Recent Pain and Opioid Data: No Data to Display Review of Systems ROS Status of ROS 10 or more systems reviewed and unremark able except as noted in history and below PFSH PFSH Social History Smoking status: Current every day smoker Exam Narrative Exam Narrative: General: alert, no acute distress Cardiovascular: regular rate and rhythm, normal peripheral perfusion. Respiratory: Lungs CTA, respirations non labored. Extremities: Swelling and tenderness to the left lateral malleolus. Normal distal pulses and sensation. Small abrasion to the left knee small abrasion to the left elbow. Neurological: oriented x 4, LOC appropriate for age. Constitutional Vital Signs, click to edit/add: Last Vital Signs Temp 98.8 F 01/04/24 10:18 Pulse 76 01/04/24 10:18 Resp 18 01/04/24 10:18 BP 165/85 H 01/04/24 10:18 Pulse Ox 98 01/04/24 10:18 O2 Del Method Room Air 01/04/24 10:18 Course Vital Signs Vital signs: Vital Signs Temperature 98.8 F 01/04/24 10:18 Pulse Rate 76 01/04/24 10:18 Respiratory Rate 18 01/04/24 10:18 Blood Pressure 165/85 H 01/04/24 10:18 Pulse Oximetry 98 01/04/24 10:18 Oxygen Delivery Method Room Air 01/04/24 10:18 Temperature 98.8 F 01/04/24 10:18 Pulse Rate 76 01/04/24 10:18 Respiratory Rate 18 01/04/24 10:18 Blood Pressure 165/85 H 01/04/24 10:18 Pulse Oximetry 98 01/04/24 10:18 Oxygen Delivery Method Room Air 01/04/24 10:18 MDM - Extremity Injury (Lower) MDM Narrative Medical decision making narrative: Patient's x-ray shows her old fracture but no acute new fracture. Radiology does not think there is a new fracture or acute superimposed fracture but does recommend if pain persist please get follow-up imaging. Patient was instructed to follow-up with her orthopedic doctor. She was placed in an Chad wrap and Aircast and she does have crutches at home if needed. Weight-bear as tolerated. Tylenol Motrin ice elevate for pain. Patient expresses understanding and is comfortable care plan for home Differential Diagnosis Differential diagnosis: Likely ankle sprain and strain and ankle fracture Medical Records Attestation: I reviewed the patient's medical records. Imaging Data Chest x-ray: Radiologist's impression: ITS Impressions Ankle X-Ray 01/04/24 10:16 IMPRESSION: 1. Remote traumatic deformity of the distal fibula, anterior tibial articular margin. Convincing superimposed fracture is not evident. If pain persists follow-up imaging may be helpful for confirmation. 2. 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 Osteoarthrosis 4. Joint effusion, anterior lateral soft tissue swelling 5. Calcaneal enthesopathy Electronically authenticated by: GIL ARIAS Date: 01/04/2024 11:08 Discharge Plan Discharge Stand Alone Forms: Portal Instructions Chief Complaint: Extremity Injury, Lower Clinical Impression: Ankle sprain and strain Patient Disposition: Home, Self-Care Time of Disposition Decision: 11:27 Condition: Good Mode of Transportation: Private Vehicle Print Language: Japanese Referrals: Physician,Non-Staff, [Primary Care Provider] - 1 week Zaki Dinero MD [Physician] - 1 week
== END 2024-01-04 11:57 | disposition home or self-care (01) ==
PROVIDERS: Emergency Provider Emergency Medicine
DX: S93.402A Sprain of unspecified ligament of left ankle, initial encounter (principal); S96.912A Strain of unspecified muscle and tendon at ankle and foot level, left foot, initial encounter; W10.8XXA Fall (on) (from) other stairs and steps, initial encounter; F17.200 Nicotine dependence, unspecified, uncomplicated; S80.212A Abrasion, left knee, initial encounter; S50.312A Abrasion of left elbow, initial encounter
CPT/HCPCS: 73610; 99283

== ENCOUNTER 2024-05-26 12:52 | Outpatient (OUT) | payer MEDICARE, SELFPAY ==
--- NOTE | 2024-05-26 12:55 | MM_ITS ---
Patient Name: ELIS WU MR#: [id number] : 1955 Exam Date: 05/26/2024 Ordering Doctor: SHAKILA VANG . RADIOLOGY REPORT PROCEDURE: MM TOMOSYNTHESIS SCREENING BI COMPARISON: MG MAMM SCREEN KIKO W CAD, 11/12/2017. INDICATIONS: screening for malignant neoplasm of breast Calculator Name NCI Breast Cancer Risk Assessment Tool 5 Year Breast Cancer Risk 1.90% Lifetime Breast Cancer Risk 6.40% Personal Breast Cancer No Personal Ovarian Cancer No Treatments None Family Cancers Grandmother-maternal with kidney cancer at age ~62. LOCATION: [facility] BREAST COMPOSITION: There are scattered areas of fibroglandular density. FINDINGS: DIAGNOSTIC CATEGORY 0--INCOMPLETE: NEED ADDITIONAL IMAGING EVALUATION. RIGHT BREAST: No significant suspicious finding. No significant change has occurred. LEFT BREAST: New poorly defined 1.6 cm rounded mass/density within the posterior upper-outer quadrant suspicious for neoplasm. Spot magnification views and ultrasound evaluation recommended. RECOMMENDATIONS: ADDITIONAL MAMMOGRAPHIC VIEWS REQUIRED: LEFT BREAST - LEFT CRANIOCAUDAL SPOT MAGNIFICATION VIEW - LEFT OBLIQUE SPOT MAGNIFICATION VIEW - ULTRASOUND: LEFT BREAST PLEASE NOTE: A NORMAL MAMMOGRAM DOES NOT EXCLUDE THE POSSIBILITY OF BREAST CANCER. A CLINICALLY SUSPICIOUS PALPABLE LUMP SHOULD BE BIOPSIED. Dictated by: Zaki Haas M.D. on 05/26/2024 at 16:31 Approved by: Zaki Haas M.D. on 05/26/2024 at 16:35
--- OUTSIDE RECORDS SUMMARY | 2024-05-26 13:13 | XMS_ITS | CCD ---
Author Organization [facility] Care Team Providers Care Rockboard Lather Name Role Phone NOMI, DR DUSTIN Stovall [...] MOSHER, DR DUSTIN Stovall Attending Unavailable Mechelle, PITER Mcmanus Attending Unavailable Mechelle, PITER Mcmanus Attending Unavailable Mechelle, PITER Mcmanus Attending Unavailable Mechelle, BOTTLE HOUSE QUALITY CONTROL TECHNICIANAvi Mcmanus Attending Unavailable Problems Active Problems Problem [...] 08-05-2021 Chronic Other aftercare (1 source) Other manager terminal (current) drug therapy; Translations: [OTH [employer]ER CURRENT DRUG THERAPY] Onset: 06-05-2022 Episodic Other [...] Test Name Value Interpretation Reference Range Facility Ambulatory Visit Summaryon 1 Ambulatory Visit Summary Ambulatory Visit Summary ALTAGRACIA WU :1955 Visit Date:05/03/2024 Ambulatory Visit Instructions Your Diagnosis Encounter for initial annual wellness visit in Medicare patient Depression Hypertension Tobacco use Screening for malignant neoplasm of colon Ovarian failure due to menopause Breast cancer screening by mammogram Immunization declined Obesity due to excess calories Tests Performed BD Bone Density DEXA -- Results Pending -- MA Mamm Screen w/CAD if perf and 3D Adriel -- Results Pending -- Please visit your patient portal for your results or contact your primary care physician. Your Care Team Attending Physician - Patricia Gomes Primary Care Physician - Patricia Gomes This Is Your Medications List bisoprolol-hydrochlo rothiazide (bisoprolol-hydrochl orothiazide 5 mg-6.25 mg Tab) nicotine (nicotine 14 mg/24 hr Transderm ER Film) nicotine (nicotine 7 mg/24 hr Transderm ER Film) sertraline (sertraline 25 mg Tab) Procedures Performed C section. Discharge Vitals Heart Rate (Peripheral) 73 Blood Pressure 120/68 Height 162 cm Height 64 in Weight 86.2 kg Weight 189.64 lb BMI 32.85 What to do next Scheduled Follow-Up Appointments Friday 1:40 PM EST With: Patricia Gomes Where: [address] [address] 2024 2:30 PM EDT With: Where: [address] [address]- Medications What How Much When Why Instructions Unchanged bisoprolol-hydrochlo rothiazide (bisoprolol-hydrochl orothiazide 5 mg-6.25 mg Tab) 1 Tablets By Mouth Every day Duration: 90 Days Unchanged nicotine (nicotine 14 mg/ 24 hr Transderm ER Film) 1 Patches Topical Every day Hypertension Depression TSH elevation BMI 32.0-32.9,adult Smoker Unchanged nicotine (nicotine 7 mg/ 24 hr Transderm ER Film) 1 Patches Topical Every day Hypertension Depression TSH elevation BMI 32.0-32.9,adult Smoker Unchanged sertraline (sertraline 25 mg Tab) 0.5 Tablets By Mouth Every day Allergies No Known Allergies Problems Ongoing - Any problem that you are currently receiving treatment for. BMI 32.0-32.9,adult Depression Hydronephrosis with obstructing calculus Hypertension Renal cyst Renal stone TSH elevation Historical - Any problem that you are no longer receiving treatment for. panic attacks Patient Survey You may receive a survey via text or e-mail asking about your office visit. Please share your experience with us by completing your survey. We appreciate your feedback and thank you for choosing us for your care. Education Materials Breast Self-Awareness Breast self-awareness is knowing how your breasts look and feel. You need to: ? Check your breasts on a regular basis. ? Tell your doctor about any changes. Become familiar with the look and feel of your breasts. This can help you catch a breast problem while it is still small and can be treated. You should do breast self-exams even if you have breast implants. What you need: ? A mirror. ? A well-lit room. ? A pillow or other soft object. How to do a breast self-exam Follow these steps to do a breast self-exam: Look for changes 1. Take off all the clothes above your waist. 2. bottle label inspector front of a mirror in a room with good lighting. 3. Put your hands down at your sides. 4. Compare your breasts in the mirror. Look for any difference between them, such as: ? A difference in shape. ? A difference in size. ? Wrinkles, dips, and bumps in one breast and not the other. 5. Look at each breast for changes in the skin, such as: ? Redness. ? Scaly areas. ? Skin that has gotten thicker. ? Dimpling. ? Open sores (ulcers). 6. Look for changes in your nipples, such as: ? Fluid coming out of a nipple. ? Fluid around a nipple. ? Bleeding. ? Dimpling. ? Redness. ? A nipple that looks pushed in (retracted), or that has changed position. Feel for changes 1. Lie on your back. 2. Feel each breast. To do this: ? Pick a breast to feel. ? Place a pillow under the shoulder closest to that breast. Put the arm closest to that breast behind your head. ? Feel the nipple area of that breast using the hand of your other arm. Feel the area with the pads of your three middle fingers by making small circles with your fingers. Use light, medium, and firm pressure. ? Continue the overlapping circles, moving downward over the breast. Keep making circles with your fingers. Stop when you feel your ribs. ? Start making circles with your fingers again, this time going upward until you reach your collarbone. ? Then, make circles outward across your breast and into your armpit area. ? Squeeze your nipple. Check f (more content not included)... Normal [facility] Family Medicine Office/Clini c Noteon 05-04-2024 Family Medicine Office/Clinic Note Family Medicine Office/Clinic Note Chief Complaint Initial Medicare Wellness Review of Systems PHQ Score Initial Depression Screen Score: 0 SCORE Physical Exam Vitals & Measurements HR: 73(Peripheral) BP: 120/68 SpO2: 97% HT: 162 cm HT: 64 in WT: 86.2 kg WT: 189.64 lb BMI: 32.85 Assessment/Plan 1. Encounter for initial annual wellness visit in Medicare patient (Z00.00: Encounter for general adult medical examination without abnormal findings) The patient was given a customized and personalized print out of all the current AHRQ USPSTF?s recommendations for preventative services and all current CDC recommended immunizations, relevant risk recommendations and the following patient brochures were given. Reviewed Medicare Prevention Services checklist. CDC-Falls Prevention and home safety screening reviewed. Patient denies any falls in last 12 months, voices no worry about falling. Exhibits no problems with sitting, standing or ambulation. Patient aware with keeping walk way area free of clutter to prevent tripping and/or falling. [place] Advance Directives reviewed. Documents remain at home, encouraged to bring in for scanning into chart. Patient is not an organ donor. Patient denies any problems with ADL?s and Instrumental ADL?s. Cognitive screening completed with memory and clock face drawing. No deficits noted. Patient recited 3/3 memory words. Immunization record reviewed, discussed Shingrix vaccine with educational handout and availability.2 COVID vaccines have been administered. Allergies and medications reviewed and up to date. No concerns with taking medication as prescribed. Reviewed OTC medications, medication list up to date. Blood tests were reviewed:UTD. No concerns with bowel/ bladder. Patient has never had a Colonoscopy. Patient agrees to Cologuard test. See #5. Reviewed pain symptoms: Patient denies pain. Reviewed all outside providers that patient follows. Last visit summary notes available in chart and/or have been requested. Patient declines any signs or symptoms of depression at this time. 8 minutes spent with screening and documentation. PHQ2 screening score 0. Patient drinks alcohol monthly or less, 3-4 drinks, denies concerns. 8 minutes spent with screening and documentation. Audit score 2. Follow up scheduled with PCP, 06/07/2024. AWV has been scheduled, 05/05/2025. Medicare provides yearly screening for alcohol and depression concerns. This is completed during our Medicare wellness visit for those who do not have a current diagnosis of depression or concerns with alcohol use. I spent a total of 17 minutes on this date of service which included preparing to see the patient, face to face patient care, completing clinical documentation, obtaining and/or reviewing separately obtained history, counseling and educating the patient with handouts. Explanations were provided with reviewing questionnaires. AUDIT risk assessment screening completed, risk score 2 with patient denying concerns with use. Completed PHQ-2 risk assessment for depression with risk score 0, negative findings. Patient has been reminded to notify the provider if there would be a change or concerns with symptoms with fear, unable to sleep, worrying too much or feeling down and/or sad with lost of interest with daily activities. Will continue to monitor with screening yearly during Medicare wellness visits. 2. Depression (F32.A: Depression, unspecified) Patient taking Sertraline daily, voices medication is effective. Follows up with PCP with medication management and symptom control. PHQ-9 risk assessment completed with negative findings. Total risk score is 0. Patient denies any suicidal ideations at this time. Reviewed additional signs/symptoms to monitor for and report to provider. 3. Hypertension (I10: Essential (primary) hypertension) Patient is taking bisoprolol-hctz daily as directed. Does monitor BP pressure at home. HTN stoplight reviewed with BP goal to be <140/90. Reviewed different factors that can alter blood pressure readings. Education handout provided with s/s to monitor for and report to provider. Patient is encouraged to increase portions of fruit, vegetables, fiber and increase exercise as much as tolerable. Reviewed importance with monitoring foods high in salt content and encouraged to limit intake, if unsure encouraged to discuss with their PCP. Encouraged to eat more chicken, fish and lean white meats and limits red meats in diet. Discussed importance with keeping BP under good control to reduce CVA risk factors. Will continue to f/u with PCP during office visits and as needed. 4. Tobacco use (Z72.0: Tobacco use) Spent a total of 12 minutes on this date completing yearly Medicare wellness visit. This included preparing to see the patient, [id number] patient care, completing clinical documentation and reviewing preventative testings that are available. Patient has been smoking 20 years, currently 15 cigarettes per day. Patient does meet c (more content not included)... Normal [facility] Comment on above: Result Comment: Elec tronically Signed By: Patricia Gomes\.br\Date and Time Signed: 05/04/24 09:44 EDT\.br\Electronically Co-Signed By: Ariana Schulte\.br\Date and Time Co-Signed: 05/03/24 17:23 EDT Lab Report[facility] 12-23-2023 Lab Reports [id number] Normal [facility] Ambulatory Visit Summaryon 0 12-02-2023 Ambulatory Visit Summary ALTAGRACIA WU :1955 Visit Date:12/02/2023 Ambulatory Visit Instructions Your [...] Follow-Up Appointments Friday 1:00 PM EDT Where: [facility] Family Medicine [place] Invalid Interpretation Code Depression [facility] Medicine Office/Clini c Noteon 12-02-2023 Family Medicine [...] over labs from 11/27/23 had done at [facility] History of Present Illness pt presents today [...] send refills. pt had labs done at [facility]. discussed those results today. TSH was slightly [...] Dosing, 85, (more content not included)... Normal [facility] Comment on above: Result Comment: Elec tronically Signed By: Patricia Gomes\.br\Date and Time Signed: 12/02/23 12:36 EDT HEPATITIS PANEL, ACUTEon HBsAg Screen Negative Normal Negative [facility] Comment on above: Performed By: #### H EPACUT #### [facility] [address], [place] [address] Dr. Lobo Flowers Hep A Ab, IgM Negative Normal Negative [facility] Comment on above: Performed By: #### H EPACUT #### [facility] [address], [place] [address] Dr. Lobo Flowers Hep B Core Ab, IgM Negative Normal Negative [facility] Comment on above: Performed By: #### H EPACUT #### [facility] [address], [place] [address] Dr. Lobo Flowers Hep C Virus Ab <0.1 Normal 0.0-0.9 [facility] [place] [facility] Comment on above: Result Comment: Nega tive: < 0.8 Indeterminate: 0.8 - 0.9 Positive: > 0.9 . The CDC recommends that a positive HCV antibody result be followed up with a HCV Nucleic Acid Amplification test (106327). Effective October 08, 2021 Hepatitis Panel (4) will be made non-orderable. [facility] offers order code [id number] Acute Hepatitis. Performed By: #### H EPACUT #### [facility] [address] [place] [address] [address] Lobo Flowers US SINGLE QUAD RT [...] by: ELIEL ELLER Date: 2021-08-13 07:58 Normal [facility] GLYCOHEMOGLOBIN A1Con 2021 ADA RECOMMENDATION ADA THERAPEUTIC TARGET 6.0 - 7.0 ACTION SUGGESTED > 7.0 Normal [facility] Comment on above: Performed By: #### A 1C #### [facility] [address] [place] [address] Dr. Lobo Flowers Glucose [Mass/Vol] 131 mg/dL Normal [facility] Comment on above: Performed By: #### A 1C #### [facility] [address] [place] [address] Dr. Lobo Flowers HbA1c (Bld) [Mass fraction] 6.2 % Critically high <=6.0 [facility] Comment on above: Performed By: #### A 1C #### [facility] [address] [place] [address] Dr. Lobo Flowers CBC AUTO DIFFon 07-31-2021 BASO # 0.1 103/ul Normal 0.0-0.1 [facility] Comment on above: Performed By: #### C BC #### [facility] [address] [place] [address] Dr. Lobo Flowers Basophils/100 WBC (Bld) 0.9 % Normal 0.2-2.0 [facility] Comment on above: Performed By: #### C BC #### [facility] [address] [place] [address] Dr. Lobo Flowers EO # 0.5 103/ul Normal 0.0-0.7 [facility] Comment on above: Performed By: #### C BC #### [facility] [address] [place] [address] Dr. Lobo Flowers Eosinophils/100 WBC (Bld) 5.7 % Normal 0.9-7.0 [facility] Comment on above: Performed By: #### C BC #### [facility] [address] [place] [address] Dr. Lobo Flowers Erythrocyte distribution width (RBC) [Ratio] 13.3 % Normal 11.0-15.0 [facility] Comment on above: Performed By: #### C BC #### [facility] [address] [place] [address] Dr. Lobo Flowers Hematocrit (Bld) [Volume fraction] 44.7 % Normal 36.0-48.0 [facility] Comment on above: Performed By: #### C BC #### [facility] [address] [place] [address] Dr. Lobo Flowers Hemoglobin (Bld) [Mass/Vol] 14.6 g/dL Normal 12.0-16.0 [facility] Comment on above: Performed By: #### C BC #### [facility] [address] [place] [address] Dr. Lobo Flowers IG # 0.02 10e3/ul Normal 0.00-0.03 [facility] Comment on above: Performed By: #### C BC #### [facility] [address] [place] [address] Dr. Lobo Flowers IG % 0.2 % Normal 0.0-0.5 [facility] Comment on above: Performed By: #### C BC #### [facility] [address] [place] [address] Dr. Lobo Flowers LYMPH # 3.1 103/ul Normal 1.2-3.8 [facility] Comment on above: Performed By: #### C BC #### [facility] [address] [place] [address] Dr. Lobo Flowers Lymphocytes/100 WBC (Bld) 36.4 % Normal 20.5-60.0 [facility] Comment on above: Performed By: #### C BC #### [facility] [address] [place] [address] Dr. Lobo Flowers MANUAL DIFF REQ NO Normal [facility] Comment on above: Performed By: #### C BC #### [facility] [address] [place] [address] Dr. Lobo Flowers MCH (RBC) [Entitic mass] 29.7 pg Normal 26.7-34.0 [facility] Comment on above: Performed By: #### C BC #### [facility] [address] [place] [address] Dr. Lobo Flowers MCHC (RBC) [Mass/Vol] 32.7 g/dL Normal 29.9-35.2 [facility] Comment on above: Performed By: #### C BC #### [facility] [address] [place] [address] Dr. Lobo Flowers MCV (RBC) [Entitic vol] 90.9 fL Normal 81.0-99.0 [facility] Comment on above: Performed By: #### C BC #### [facility] [address] [place] [address] Dr. Lobo Flowers MONO # 0.7 103/ul Normal 0.3-0.8 [facility] Comment on above: Performed By: #### C BC #### [facility] [address] [place] [address] Dr. Lobo Flowers Monocytes/100 WBC (Bld) 8.5 % Normal 1.7-12.0 [facility] Comment on above: Performed By: #### C BC #### [facility] [address] [place] [address] Dr. Lobo Flowers NEUT # 4.1 103/ul Normal 1.4-6.5 [facility] Comment on above: Performed By: #### C BC #### [facility] [address] [place] [address] Dr. Lobo Flowers Neutrophils/100 WBC (Bld) 48.3 % Normal 43.0-75.0 [facility] Comment on above: Performed By: #### C BC #### [facility] [address] [place] [address] Dr. Lobo Flowers Platelet mean volume (Bld) [Entitic vol] 9.9 fL Normal 9.5-13.5 [facility] Comment on above: Performed By: #### C BC #### [facility] [address] [place] [address] Dr. Lobo Flowers PLT 206 103/ul Normal 150-450 [facility] Comment on above: Performed By: #### C BC #### [facility] [address] [place] [address] Dr. Lobo Flowers RBC 4.92 106/ul Normal 4.20-5.40 [facility] Comment on above: Performed By: #### C BC #### [facility] [address] [place] [address] Dr. Lobo Flowers WBC 8.6 103/ul Normal 4.0-11.0 [facility] Comment on above: Performed By: #### C BC #### [facility] [address] [place] [address] Dr. Lobo Flowers LIPID PROFILEon 07-31-2021 CHOL-HDL RATIO NORM SEE BELOW Normal [facility] Comment on above: Result Comment: 3.3 - 4.4 LOW RISK 4.4 - 7.1 AVERAGE RISK 7.1 - 11.0 MODERATE RISK >11.0 HIGH RISK Performed By: #### C MP, LIPID #### [facility] [address] [place] [address] Dr. Lobo Flowers Cholesterol [Mass/Vol] 210 mg/dL Critically high <=200 [facility] Comment on above: Performed By: #### C MP, LIPID #### [facility] [address] [place] [address] Dr. Lobo Flowers Cholesterol in HDL [Mass/Vol] 41 mg/dL Normal [facility] Comment on above: Performed By: #### C MP, LIPID #### [facility] [address] [place] [address] Dr. Lobo Flowers Cholesterol in LDL [Mass/Vol] 143.8 mg/dL Normal [facility] Comment on above: Performed By: #### C MP, LIPID #### [facility] [address] [place] [address] Dr. Lobo Flowers Cholesterol.total/Ch olesterol in HDL [Mass ratio] 5.1 {ratio} Normal [facility] Comment on above: Performed By: #### C MP, LIPID #### [facility] [address] [place] [address] Dr. Lobo Flowers HDL NORMAL > or = 60 mg/dl - LOW CARDIOVASCULAR RISK <40 mg/dl - HIGH CARDIOVASCULAR RISK Normal [facility] Comment on above: Performed By: #### C MP, LIPID #### [facility] [address] [place] [address] Dr. Lobo Flowers LDL CALC NORMAL SEE BELOW Normal [facility] Comment on above: Result Comment: <100 mg/dl OPTIMAL 100 - 129 mg/dl NEAR OR ABOVE OPTIMAL 130 - 159 mg/dl BORDERLINE HIGH 160 - 189 mg/dl HIGH >190 mg/dl VERY HIGH Performed By: #### C MP, LIPID #### [facility] [address] [place] [address] Dr. Lobo Flowers Triglyceride [Mass/Vol] 126 mg/dL Normal <=150 [facility] Comment on above: Performed By: #### C MP, LIPID #### [facility] [address] [place] [address] Dr. Lobo Flowers VLDL CALC 25.2 mg/dL Normal [facility] Comment on above: Performed By: #### C MP, LIPID #### [facility] [address] [place] [address] Dr. Lobo Flowers PROF 14(COMP METB)on 022 Albumin [Mass/Vol] 3.4 g/dL Critically low 3.5-5.0 [facility] Comment on above: Performed By: #### C MP, LIPID #### [facility] [address] [place] [address] Dr. Lobo Flowers Albumin/Globulin [Mass ratio] 0.7 {ratio} Normal [facility] Comment on above: Performed By: #### C MP, LIPID #### [facility] [address] [place] [address] Dr. Lobo Flowers ALP [Catalytic activity/Vol] 104 U/L Normal 38-126 [facility] Comment on above: Performed By: #### C MP, LIPID #### [facility] [address] [place] [address] Dr. Lobo Flowers ALT [Catalytic activity/Vol] 58 U/L Critically high 9-52 [facility] Comment on above: Performed By: #### C MP, LIPID #### [facility] [address] [place] [address] Dr. Lobo Flowers Anion gap [Moles/Vol] 10.4 mmol/L Normal [facility] Comment on above: Performed By: #### C MP, LIPID #### [facility] [address] [place] [address] Dr. Lobo Flowers AST [Catalytic activity/Vol] 59 U/L Critically high 14-36 [facility] Comment on above: Performed By: #### C MP, LIPID #### [facility] [address] [place] [address] Dr. Lobo Flowers Bilirubin [Mass/Vol] 0.7 mg/dL Normal 0.2-1.3 [facility] Comment on above: Performed By: #### C MP, LIPID #### [facility] [address] [place] [address] Dr. Lobo Flowers Calcium [Mass/Vol] 10.7 mg/dL Critically high 8.4-10.2 [facility] Comment on above: Performed By: #### C MP, LIPID #### [facility] [address] [place] [address] Dr. Lobo Flowers Chloride [Moles/Vol] 99 mmol/L Normal 98-107 [facility] Comment on above: Performed By: #### C MP, LIPID #### [facility] [address] [place] [address] Dr. Lobo Flowers CO2 [Moles/Vol] 32.4 mmol/L Critically high 22.0-30.0 [facility] Comment on above: Performed By: #### C MP, LIPID #### [facility] [address] [place] [address] Dr. Lobo Flowers Creatinine [Mass/Vol] 0.78 mg/dL Normal 0.52-1.04 [facility] Comment on above: Performed By: #### C MP, LIPID #### [facility] [address] [place] [address] Dr. Lobo Flowers EGFR-AF GUINEAN >60 Normal >=60 [facility] Comment on above: Performed By: #### C MP, LIPID #### [facility] [address] [place] [address] Dr. Lobo Flowers EGFR-NON AF GUINEAN >60 Normal >=60 [facility] Comment on above: Performed By: #### C MP, LIPID #### [facility] [address] [address] [address] Lobo Flowers Globulin (S) [Mass/Vol] 5.0 g/dL Normal [facility] Comment on above: Performed By: #### C MP, LIPID #### [facility] [address] [address] [address] Lobo Flowers Glucose [Mass/Vol] 146 mg/dL Critically high 74-106 [facility] Comment on above: Performed By: #### C MP, LIPID #### [facility] [address] [place] [address] Dr. Lobo Flowers Potassium [Moles/Vol] 3.8 mmol/L Normal 3.4-5.0 [facility] Comment on above: Performed By: #### C MP, LIPID #### [facility] [address] [place] [address] Dr. Lobo Flowers Protein [Mass/Vol] 8.4 g/dL Critically high 6.1-8.2 [facility] Comment on above: Performed By: #### C MP, LIPID #### [facility] [address] [place] [address] Dr. Lobo Flowers Sodium [Moles/Vol] 138 mmol/L Normal 137-145 [facility] Comment on above: Performed By: #### C MP, LIPID #### [facility] [address] [place] [address] Dr. Lobo Flowers Urea nitrogen [Mass/Vol] 11.0 mg/dL Normal 7.0-17.0 [facility] Comment on above: Performed By: #### C MP, LIPID #### [facility] [address] [place] [address] Dr. Lobo Flowers Urea nitrogen/Creatinine [Mass ratio] 14.1 mg/mg Normal [facility] Comment on above: Performed By: #### C MP, LIPID #### [facility] [address] [place] [address] Dr. Lobo Flowers Encounters Encounter Date Encounter Type Care Provider Facility Start: 05-05-2025 ambulatory [employer] TECHNICIAN Patricia L Mechelle Facil ity:[facility] Marcelino Start: 06-07-2024 ambulatory [employer] TECHNICIAN Patricia L Mechelle Facil ity:[facility] Marcelino Start: 05-03-2024 End: 05-03-2024 ambulatory [employer] TECHNICIAN Patricia L Mechelle Facility:[facility] Linda enriqueze Start: 12-02-2023 End: 12-02-2023 ambulatory [employer] TECHNICIAN Patricia L Mechelle Facility:[facility] Linda chadwick Start: 06-03-2022 End: 06-03-2022 ambulatory ANGELICA BONNER Facility:[facility] Start: 08-24-2021 End: 08-25-[address] DUSTIN MOSHER Facility:[facility] Start: 08-13-2021 End: 08-14-[address] DUSTIN MOSHER Facility:[facility] Start: 08-13-2021 End: 08-14-[address] DUSTIN MOSHER Facility:[facility] Start: 08-08-2021 End: 08-09-[address] DUSTIN MOSHER Facility:[facility] Start: 07-31-2021 End: 08-01-[address] DUSTIN MOSHER Facility:[facility] Payers Date Payer Category Payer Medicare [id number] 1958 Private Health Insurance CLI [id number] 1955 Unknown [id number] 2.16.84 [id number] 1955 Unknown [id number] 2.16.84 [id number] 1955 Unknown [id number] 2.16.84 [id number] 1955 Unknown [id number] 2.16.84 [id number] 1955 Unknown [id number] 2.16.84 [id number] 1955 Unknown [id number] 2.16.84 [id number] 1955 Unknown [id number] 2.16.8 [id number] 1955 Unknown [id number] 2.16.8 [id number] 1955 Unknown [id number] 2.16.8 [id number] 1955 Unknown [id number] 2.16.8 [id number] Clinical Note 05-03-2024 Note Date & Type Note Facility 05-03-2024 Note Patient Education Emergency Medicine Heart Attack A heart attack occurs when blood and oxygen supply to the heart is cut off. A heart attack can cause damage to the heart that cannot be fixed. A heart attack is also called a myocardial infarction, or AK. If you think you are having a heart attack, do not wait to see if the symptoms will go away. Get medical help right away. What are the causes? This condition may be caused by: ? A fatty substance (plaque) in the blood vessels (arteries). This can block the flow of blood to the heart. ? A blood clot in the blood vessels that go to the heart. The blood clot blocks blood flow. ? An abnormal heartbeat. ? Some diseases, such as problems in red blood cells (anemia)orproblems in breathing (respiratory failure). ? Tightening (spasm) of a blood vessel that cuts off blood to the heart. ? A tear in a blood vessel of the heart. Other causes may include: ? Using drugs such as cocaine or methamphetamine. ? Low blood pressure. What increases the risk? ? Aging. The risk gets higher as you get older. ? Having a personal or family history of chest pain, heart attack, stroke, or narrowing of the arteries in the legs, arms, head, or stomach (peripheral vascular disease). ? Having taken chemotherapy or immune-suppressing medicines. ? Being male. ? Being overweight or obese. ? Having any of these conditions: ? High blood pressure. ? High cholesterol. ? Diabetes. ? Making lifestyle choices such as: ? Drinking too much alcohol. ? Not getting regular exercise. ? Smoking. What are the signs or symptoms? ? Chest pain. It may feel like: ? Crushing or squeezing. ? Tightness, pressure, fullness, or heaviness. ? Pain in the arm, neck, jaw, back, or upper body. ? Heartburn. ? Upset stomach (indigestion). ? Shortness of breath. ? Feeling like you may vomit (nauseous). ? Cold sweats. ? Sudden light-headedness, dizziness, or passing out. ? Feeling tired. How is this treated? A heart attack must be treated as soon as possible. Treatment may include: ? Medicines to: ? Break up or dissolve blood clots. ? Thin your blood and help prevent blood clots. ? Treat blood pressure. ? Improve blood flow to the heart. ? Reduce pain. ? Reduce cholesterol. ? Procedures to widen a blocked artery and keep it open. ? Open heart surgery. ? Making your heart strong again (cardiac rehabilitation) through exercise, education, and counseling. Follow these instructions at home: Medicines ? Take rjgw-imr-pjzpcug and prescription medicines only as told by your doctor. ? Do not take these medicines unless your doctor says it is okay: ? NSAIDs, such as ibuprofen, naproxen, or celecoxib. ? Any vitamins or supplements. ? Hormone replacement therapy that has estrogen with or without progestin. ? If you are taking blood thinners: ? Talk with your doctor before taking any medicines that have aspirin or NSAIDs, such as ibuprofen. ? Take medicines exactly as told. Take them at the same time each day. ? Avoid doing things that could hurt or bruise you. Take action to prevent falls. ? Wear an alert bracelet or carry a card that shows you are taking blood thinners. Lifestyle ? Do not smoke or use any products that contain nicotine or tobacco. If you need help quitting, ask your doctor. ? Avoid secondhand smoke. ? Exercise regularly. Ask your doctor about a cardiac rehab program. ? Eat heart-healthy foods. Your doctor will tell you what foods to eat. ? Stay at a healthy weight. ? Learn ways to lower your stress level. ? Do not use illegal drugs. Alcohol use ? Do not drink alcohol if: ? Your doctor tells you not to drink. ? You are , may be , or are planning to become . ? If you drink alcohol: ? Limit how much you have to: ? 0?1 drink a day for women. ? 0?2 drinks a day for men. ? Know how much alcohol is in your drink. In the [place] one drink equals one 12 oz bottle of beer (355 mL), one 5 oz glass of wine (148 mL), or one 1? oz glass of hard liquor (44 mL). General instructions ? Work with your doctor to treat other problems you may have, such as diabetes or high blood pressure. ? Get screened for depression. Get treatment if needed. ? Keep your vaccines up to date. Get the flu shot (influenza vaccine) every year. ? Keep all follow-up visits. Contact a doctor if: ? You feel very sad. ? You have trouble doing your daily activities. ? You get light-headed or dizzy. Get help right away if: ? You have sudden, unexplained discomfort in your chest, arms, back, neck, jaw, or upper body. ? You have shortness of breath. ? You have sudden sweating or clammy skin. ? You feel like you may vomit or you vomit. ? You feel tired or weak. ? You feel your heart beating fast. ? You feel your heart skipping beats. ? You (more content not included)... [facility] Summary Purpose Family History No Family History Records FoundNo Family History Records Found Advance Directives No Advanced Directives Records FoundNo Advanced Directives Records Found Additional Source Comments INFORMATION SOURCE (unrecogn ized section and content) DATE CREATED AUTHOR 06/05/2022 [facility] DATE CREATED AUTHOR 'S ORGANIZ ATION 05/04/2024 [facility] FOR RECORDS PERTAINING TO PATIENTS WHO ARE [...] BE BASED ON THE PRIMARY CLINICAL RECORDS. [facility]. provides no warranty or guarantee of the accuracy or completeness of information in this document.
--- NOTE | 2024-05-26 13:16 | XR_ITS ---
[address] [address] Patient Name: ELIS WU MRN: [id number] date: 1955 Sex: F Assigned Patient Location: [facility] Current Patient Location: Accession/Order Number: [id number] Exam Date: 05/26/2024 13:30 Report Date: 05/27/2024 04:29 At the request of: SHAKILA VANG Procedure: XR DEXA axial skeleton EXAMINATION: XR DEXA axial skeleton HISTORY: Primary Ovarian Failure COMPARISON: No relevant comparison available. TECHNIQUE: Dual-energy X-ray absorptiometry (DXA) was performed. FINDINGS: SPINE ANALYSIS: Average bone mineral density is 1.270 g/cm2. T-score (standard deviation relative to young adult mean): 0.7 . HIP ANALYSIS: Lowest bone mineral density is within the left femoral neck, 0.797 g/cm2. T-score (standard deviation relative to young adult mean): -1.7 . XR/XR DEXA axial skeleton IMPRESSION: World Health Organization Classification: Osteopenia - Moderate Fracture Risk FRAX: Cannot be calculated. Pharmacologic treatment recommendations * No uniform recommendation applies to all patients. Management plans must be individualized. * Consider initiating pharmacologic treatment in postmenopausal women and men >= 50 years of age who have the following: Primary fracture prevention: * T-score <= - 2.5 at the femoral neck, total hip, lumbar spine, 33% radius (some uncertainty with existing data) by DXA. * Low bone mass (osteopenia: T-score between - 1.0 and - 2.5) at the femoral neck or total hip by DXA with a 10-year hip fracture risk >= 3% or a 10-year major osteoporosis-related fracture risk >= 20% (i.e., clinical vertebral, hip, forearm, or proximal humerus) based on the [place]-adapted FRAXregistered model. Secondary fracture prevention: * Fracture of the hip or vertebra regardless of BMD [4, 5]. * Fracture of proximal humerus, pelvis, or distal forearm in persons with low bone mass (osteopenia: T-score between - 1.0 and - 2.5). The decision to treat should be individualized in persons with a fracture of the proximal humerus, pelvis, or distal forearm who do not have osteopenia or low BMD [12, 13]. Chaka MS, Elvin SL, Ngozi KL, Rufino EM, Kinga KG, AJ, Costa ES. The clinician's guide to prevention and treatment of osteoporosis. Osteoporos Int. 2021;33(10):1834-4110. doi: 10.1007/a21259-976-21400-s. Epub 2021Nov 22. Erratum in: Osteoporos Int. 2021Feb 21;: PMID: [id number]; PMCID: [id number]. Electronically authenticated by: LEANDRO DAMON Date: 05/27/2024 04:29
== END 2024-05-26 12:53 | disposition home or self-care (01) ==
LOC: MAMMO 12:52
PROVIDERS: PCP Nurse Practitioner; Visit Provider Nurse Practitioner
DX: Z12.31 Encounter for screening mammogram for malignant neoplasm of breast (principal); E28.39 Other primary ovarian failure; Z80.51 Family history of malignant neoplasm of kidney; N63.21 Unspecified lump in the left breast, upper outer quadrant; M85.80 Other specified disorders of bone density and structure, unspecified site
CPT/HCPCS: 77063; 77067; 77080

== ENCOUNTER 2024-06-08 13:50 | Outpatient (OUT) | payer MEDICARE, SELFPAY ==
--- NOTE | 2024-06-08 13:58 | MM_ITS ---
Patient Name: ELIS WU MR#: [id number] : 1955 Exam Date: 06/08/2024 Ordering Doctor: SHAKILA VANG . RADIOLOGY REPORT PROCEDURE: MM DIAGNOSTIC MAMMO UNILAT LT, 06/08/2024, 13:58 US BREAST LT LIMITED, 06/08/2024, 14:14 COMPARISON: MM TOMOSYNTHESIS SCREENING BI, 05/26/2024. INDICATIONS: Abnormal Screening Mammogram Calculator Name NCI Breast Cancer Risk Assessment Tool 5 Year Breast Cancer Risk 1.90% Lifetime Breast Cancer Risk 6.40% Personal Breast Cancer No Personal Ovarian Cancer No Treatments None Family Cancers Grandmother-maternal with kidney cancer at age ~62. LOCATION: [facility] BREAST COMPOSITION: There are scattered areas of fibroglandular density. FINDINGS: DIAGNOSTIC CATEGORY 5--HIGHLY SUGGESTIVE OF MALIGNANCY. HIGH PROBABILITY OF MALIGNANCY BASED ON THE FOLLOWING: Spot images demonstrate a persistent 1.7 x 1.4 cm partially circumscribed mass in the upper outer quadrant, posterior breast. Ultrasound was performed demonstrating 1.5 x 1.0 x 1.0 cm heterogeneous hypoechoic irregular mass with some acoustic shadowing at the 2 o'clock position. This is suspicious for malignancy and ultrasound-guided core biopsy is recommended RECOMMENDATIONS: ULTRASOUND-GUIDED CORE BIOPSY: LEFT BREAST PLEASE NOTE: A NORMAL MAMMOGRAM DOES NOT EXCLUDE THE POSSIBILITY OF BREAST CANCER. A CLINICALLY SUSPICIOUS PALPABLE LUMP SHOULD BE BIOPSIED. Dictated by: Angelo Mcdaniel MD on 06/08/2024 at 14:50 Approved by: Angelo Mcdaniel MD on 06/08/2024 at 14:53
--- NOTE | 2024-06-08 14:02 | US_ITS ---
Patient Name: ELIS WU MR#: [id number] : 1955 Exam Date: 06/08/2024 Ordering Doctor: SHAKILA VANG . RADIOLOGY REPORT PROCEDURE: MM DIAGNOSTIC MAMMO UNILAT LT, 06/08/2024, 13:58 US BREAST LT LIMITED, 06/08/2024, 14:14 COMPARISON: MM TOMOSYNTHESIS SCREENING BI, 05/26/2024. INDICATIONS: Abnormal Screening Mammogram Calculator Name NCI Breast Cancer Risk Assessment Tool 5 Year Breast Cancer Risk 1.90% Lifetime Breast Cancer Risk 6.40% Personal Breast Cancer No Personal Ovarian Cancer No Treatments None Family Cancers Grandmother-maternal with kidney cancer at age ~62. LOCATION: [facility] BREAST COMPOSITION: There are scattered areas of fibroglandular density. FINDINGS: DIAGNOSTIC CATEGORY 5--HIGHLY SUGGESTIVE OF MALIGNANCY. HIGH PROBABILITY OF MALIGNANCY BASED ON THE FOLLOWING: Spot images demonstrate a persistent 1.7 x 1.4 cm partially circumscribed mass in the upper outer quadrant, posterior breast. Ultrasound was performed demonstrating 1.5 x 1.0 x 1.0 cm heterogeneous hypoechoic irregular mass with some acoustic shadowing at the 2 o'clock position. This is suspicious for malignancy and ultrasound-guided core biopsy is recommended RECOMMENDATIONS: ULTRASOUND-GUIDED CORE BIOPSY: LEFT BREAST PLEASE NOTE: A NORMAL MAMMOGRAM DOES NOT EXCLUDE THE POSSIBILITY OF BREAST CANCER. A CLINICALLY SUSPICIOUS PALPABLE LUMP SHOULD BE BIOPSIED. Dictated by: Angelo Mcdaniel MD on 06/08/2024 at 14:50 Approved by: Angelo Mcdaniel MD on 06/08/2024 at 14:53
== END 2024-06-08 13:51 | disposition home or self-care (01) ==
LOC: MAMMO 13:50
PROVIDERS: PCP Nurse Practitioner; Visit Provider Nurse Practitioner
DX: R92.8 Other abnormal and inconclusive findings on diagnostic imaging of breast (principal); Z80.51 Family history of malignant neoplasm of kidney; N63.21 Unspecified lump in the left breast, upper outer quadrant
CPT/HCPCS: 76642; 77065

== ENCOUNTER 2024-06-16 07:38 | Day surgery (SDC) | payer MEDICARE, SELFPAY ==
--- OUTSIDE RECORDS SUMMARY | 2024-06-16 07:41 | XMS_ITS | CCD ---
Author Organization [facility] Care Team Providers Care Apartment Property Manager Name Role Phone NOMI, DR DUSTIN Stovall [...] 08-05-2021 Chronic Other aftercare (1 source) Other long term care phlebotomist (current) drug therapy; Translations: [[facility] CURRENT DRUG THERAPY] Onset: 06-05-2022 Episodic Other [...] Reference Range Facility Ambulatory Visit Summaryon 1 2023 Ambulatory Visit Summary Ambulatory Visit Summary ALTAGRACIA WU Adi :1955 Visit Date:06/07/2024 Ambulatory Visit Instructions Your Diagnosis Hypertension Smoker BMI 33.0-33.9,adult Overweight (BMI 25.0-29.9) Your Care Team Attending Physician - Patricia Gomes Primary Care Physician - Patricia Gomes This Is Your Medications List bisoprolol-hydrochlo rothiazide (bisoprolol-hydrochl orothiazide 5 mg-6.25 mg Tab) nicotine (nicotine 14 mg/24 hr Transderm ER Film) nicotine (nicotine 7 mg/24 hr Transderm ER Film) sertraline (sertraline 25 mg Tab) Procedures Performed C section. Discharge Vitals Temperature (Oral) 36.6 ???C Heart Rate (Peripheral) 70 Respiratory Rate 16 Blood Pressure 128/84 Height 162.0 cm Height 64 in Weight 86.9 kg Weight 191.581 lb BMI 33.11 What to do next Scheduled Follow-Up Appointments Friday 1:40 PM EDT With: Patricia Gomes Where: [address] [address]- 2024 2:30 PM EDT With: Where: [address] [address]- Medications What How Much When Why Instructions [...] you for choosing us for your care. Normal [facility] Family Medicine Office/Clini c Noteon 06-07-2024 Family Medicine Office/Clinic Note Family Medicine Office/Clinic Note HPI Staff Pt here today for 6m follow up to HTN, Depression & elevated TSH Patient is here for follow up on hypertension. How often are you checking your blood pressure? sometimes What are your average readings? she doesn't remember Yearly BMP: Follow up for Mental Status: Medication adherence- Yes, takes medication as prescribed Medication refill needed: _ Suicidal thoughts-Not at this time Most recent SHIRLENE: 0 Most recent PHQ: 1 Last labs: 11/27/23 @ [facility] Repeat Mammogram ordered 05/28/24 (due to incomplete mammo done 05/26/24) Tomorrow that she gets this done Dexa Scan 05/26/24 @ [facility] Cologuard ordered 05/03/24 Nicotine patches were not covered by insurance so she never did anything with this History of Present Illness pt presents today for 6 month follow up on HTN Review of Systems PHQ Score Initial Depression Screen Score: 0 SCORE Physical Exam Vitals & Measurements T: 36.6 ???C(Oral) HR: 70(Peripheral) RR: 16 BP: 128/84 SpO2: 96% HT: 64 in HT: 162.0 cm WT: 86.9 kg WT: 191.581 lb BMI: 33.11 General: alert, no acute distress ENMT: oral mucosa moist, no pharyngeal erythema or exudate Cardiovascular: regular rate and rhythm, normal peripheral perfusion Respiratory: Lungs CTA, respirations non labored Extremities: no deformity, no trauma Neurological: oriented x 4, LOC appropriate for age, CN II-XII intact, motor strength equal & normal bilaterally, speech normal Assessment/Plan 1. Hypertension (I10: Essential (primary) hypertension) pt presents today for 6 month follow up on HTN and depression. pt is doing well. BP at goal. SHIRLENE 0 PQH2-1. denies needs at this time. will have labs done in november and return for follow up after labs are done. 2. Smoker (F17.200: Nicotine dependence, unspecified, uncomplicated) consider not smoking 3. BMI 33.0-33.9,adult (Z68.33: Body mass index [BMI] 33.0-33.9, adult) BMI education given 4. Overweight (BMI 25.0-29.9) (E66.3: Overweight) BMI education given Follow-up No qualifying data available Problem List/Past Medical History Ongoing BMI 32.0-32.9,adult Depression Hydronephrosis with obstructing calculus Hypertension Renal cyst Renal stone TSH elevation Historical panic attacks Procedure/Surgical History C section. Medications bisoprolol-hydrochlo rothiazide 5 mg-6.25 mg Tab, 1 tab(s), Oral, Daily, 3 refills nicotine 14 mg/24 hr Transderm ER Film, 1 patch(es), Topical, Daily nicotine 7 mg/24 hr Transderm ER Film, 1 patch(es), Topical, Daily sertraline 25 mg Tab, 12.5 mg= 0.5 tab(s), Oral, Daily Allergies No Known Allergies Social History Alcohol - Low Risk, 08/02/2019 Current. Beer, Wine. 1-2 times per month., 06/06/2024 Substance Abuse - Denies Substance Abuse, 08/02/2019 Never., 06/06/2024 Tobacco - Medium Risk, 08/02/2019 10 or more cigarettes (1/2 pack or more)/day in last 30 days Tobacco Use:. Never Smokeless Tobacco Use:. Cigarettes, 06/07/2024 Immunizations Vaccine Date Status Comments SARSCoV2 mRNA(tozinamer-annie- sucros) vac 08/13/2021 Recorded 2024-04-26: TPV65 SARS-CoV-2 (COVID-19) mRNA BNT-162b2 vax 07/23/2021 Recorded 2024-04-26: TPV60 Normal [facility] Comment on above: Result Comment: Elec tronically Signed By: Patricia Gomes\.br\Date and Time Signed: 06/07/24 13:57 EST Ambulatory Visit Summaryon 1 Ambulatory Visit Summary Ambulatory Visit Summary DIANAROXANE STEPHENSMissael Joshi :1955 Visit Date:05/03/2024 Ambulatory Visit Instructions Your [...] 1:40 PM EST With: Patricia Gomes Where: [address] [address]- 2024 2:30 PM EDT With: Where: [address] [address]- Medications What How Much When Why Instructions [...] all the clothes above your waist. 2. 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 Normal [facility] Family Medicine Office/Clini c Noteon 05-04-2024 Family [...] of clutter to prevent tripping and/or falling. [place] Advance Directives reviewed. Documents remain at home, [...] This included preparing to see the patient, evza-by-gdnn patient care, completing clinical documentation and reviewing preventative testings that are available. Patient has been smoking 20 years, currently 15 cigarettes per day. Patient does meet c (more content not included)... Normal [facility] Comment on above: Result Comment: Elec tronically Signed By: Patricia Gomes\.br\Date and Time Signed: 05/04/24 09:44 EDT\.br\Electronically Co-Signed By: Ariana Schulte\.br\Date and Time Co-Signed: 05/03/24 17:23 EDT [facility] 12-23-2023 Lab Reports [id number] #[id number] Normal [facility] Ambulatory Visit Summaryon 0 12-02-2023 Ambulatory Visit [...] Follow-Up Appointments Friday 1:00 PM EDT Where: [facility] [place] Invalid Interpretation Code Depression [facility] Medicine Office/Clini c Noteon 12-02-2023 Family [...] over labs from 11/27/23 had done at [facility] History of Present Illness pt presents today [...] send refills. pt had labs done at [facility]. discussed those results today. TSH was slightly [...] Dosing, 85, (more content not included)... Normal [facility] Comment on above: Result Comment: Elec tronically Signed By: Patricia Gomes\.br\Date and Time Signed: 12/02/23 12:36 EDT HEPATITIS PANEL, ACUTEon HBsAg Screen Negative Normal Negative [facility] Comment on above: Performed By: #### H EPACUT #### [facility] [address] [place] [address] Dr. Lobo Flowers Hep A Ab, IgM Negative Normal Negative [facility] Comment on above: Performed By: #### H EPACUT #### [facility] [address] [place], [place] [address] Dr. Lobo Flowers Hep B Core Ab, IgM Negative Normal Negative [facility] Comment on above: Performed By: #### H EPACUT #### [facility] [address] [place], [place] [address] Dr. Lobo Flowers Hep C Virus Ab <0.1 Normal 0.0-0.9 [facility] Comment on above: Result Comment: Nega tive: < 0.8 Indeterminate: 0.8 - 0.9 Positive: > 0.9 . The CDC recommends that a positive HCV antibody result be followed up with a HCV Nucleic Acid Amplification test (981511). Effective October 08, 2021 Hepatitis Panel (4) will be made non-orderable. [facility] offers order code [id number] Acute Hepatitis. Performed By: #### H EPACUT #### [facility] [address] [place], [place] [address] Dr. Lobo Flowers US SINGLE QUAD RT [...] ELIEL ELLER Date: 2021-08-13 07:58 Normal [facility] GLYCOHEMOGLOBIN A1Con 2021 ADA RECOMMENDATION ADA THERAPEUTIC TARGET 6.0 - 7.0 ACTION SUGGESTED > 7.0 Normal [facility] Comment on above: Performed By: #### A 1C #### [facility] [address] [place] [address] Dr. Lobo Flowers Glucose [Mass/Vol] 131 mg/dL Normal [facility] [place] [facility] Comment on above: Performed By: #### A 1C #### [facility] [address] [place] [address] Dr. Lobo Flowers HbA1c (Bld) [Mass fraction] 6.2 % Critically high <=6.0 [facility] Comment on above: Performed By: #### A 1C #### [facility] [address] [place] [address] Dr. Lobo Flowers CBC AUTO DIFFon 07-31-2021 BASO # 0.1 103/ul Normal 0.0-0.1 [facility] Comment on above: Performed By: #### C BC #### [facility] [address] [place] [address] Dr. Lobo Flowers Basophils/100 WBC (Bld) 0.9 % Normal 0.2-2.0 [facility] Comment on above: Performed By: #### C BC #### [facility] [address] [place] [address] Dr. Lobo Flowers EO # 0.5 103/ul Normal 0.0-0.7 [facility] Comment on above: Performed By: #### C BC #### [facility] [address] [place] [address] Dr. Lobo Flowers Eosinophils/100 WBC (Bld) 5.7 % Normal 0.9-7.0 [facility] Comment on above: Performed By: #### C BC #### [facility] [address] [place] [address] Dr. Lobo Flowers Erythrocyte distribution width (RBC) [Ratio] 13.3 % Normal 11.0-15.0 [facility] Comment on above: Performed By: #### C BC #### [facility] [address] [place] [address] Dr. Lobo Flowers Hematocrit (Bld) [Volume fraction] 44.7 % Normal 36.0-48.0 [facility] Comment on above: Performed By: #### C BC #### [facility] [address] [place] [address] Dr. Lobo Flowers Hemoglobin (Bld) [Mass/Vol] 14.6 g/dL Normal 12.0-16.0 [facility] Comment on above: Performed By: #### C BC #### [facility] [address] [place] [address] Dr. Lobo Flowers IG # 0.02 10e3/ul Normal 0.00-0.03 [facility] Comment on above: Performed By: #### C BC #### [facility] [address] [place] [address] Dr. Lobo Flowers IG % 0.2 % Normal 0.0-0.5 [facility] Comment on above: Performed By: #### C BC #### [facility] [address] [place] [address] Dr. Lobo Flowers LYMPH # 3.1 103/ul Normal 1.2-3.8 [facility] Comment on above: Performed By: #### C BC #### [facility] [address] [place] [address] Dr. Lobo Flowers Lymphocytes/100 WBC (Bld) 36.4 % Normal 20.5-60.0 [facility] Comment on above: Performed By: #### C BC #### [facility] [address] [place] [address] Dr. Lobo Flowers MANUAL DIFF REQ NO Normal [facility] Comment on above: Performed By: #### C BC #### [facility] [address] [place] [address] Dr. Lobo Flowers MCH (RBC) [Entitic mass] 29.7 pg Normal 26.7-34.0 [facility] Comment on above: Performed By: #### C BC #### [facility] [address] [place] [address] Dr. Lobo Flowers MCHC (RBC) [Mass/Vol] 32.7 g/dL Normal 29.9-35.2 [facility] Comment on above: Performed By: #### C BC #### [facility] [address] [place] [address] Dr. Lobo Flowers MCV (RBC) [Entitic vol] 90.9 fL Normal 81.0-99.0 [facility] Comment on above: Performed By: #### C BC #### [facility] [address] [place] [address] Dr. Lobo Flowers MONO # 0.7 103/ul Normal 0.3-0.8 [facility] Comment on above: Performed By: #### C BC #### [facility] [address] [place] [address] Dr. Lobo Flowers Monocytes/100 WBC (Bld) 8.5 % Normal 1.7-12.0 [facility] Comment on above: Performed By: #### C BC #### [facility] [address] [place] [address] Dr. Lobo Flowers NEUT # 4.1 103/ul Normal 1.4-6.5 [facility] Comment on above: Performed By: #### C BC #### [facility] [address] [place] [address] Dr. Lobo Flowers Neutrophils/100 WBC (Bld) 48.3 % Normal 43.0-75.0 [facility] Comment on above: Performed By: #### C BC #### [facility] [address] [place] [address] Dr. Lobo Flowers Platelet mean volume (Bld) [Entitic vol] 9.9 fL Normal 9.5-13.5 [facility] Comment on above: Performed By: #### C BC #### [facility] [address] [place] [address] Dr. Lobo Flowers PLT 206 103/ul Normal 150-450 [facility] Comment on above: Performed By: #### C BC #### [facility] [address] [place] [address] Dr. Lobo Flowers RBC 4.92 106/ul Normal 4.20-5.40 [facility] Comment on above: Performed By: #### C BC #### [facility] [address] [address] [address] Lobo Flowers WBC 8.6 103/ul Normal 4.0-11.0 [facility] Comment on above: Performed By: #### C BC #### [facility] [address] [address] [address] Lobo Flowers LIPID PROFILEon 07-31-2021 CHOL-HDL RATIO NORM SEE BELOW Normal [facility] Comment on above: Result Comment: 3.3 - 4.4 LOW RISK 4.4 - 7.1 AVERAGE RISK 7.1 - 11.0 MODERATE RISK >11.0 HIGH RISK Performed By: #### C MP, LIPID #### [facility] [address] [place] [address] Dr. Lobo Flowers Cholesterol [Mass/Vol] 210 mg/dL Critically high <=200 [facility] Comment on above: Performed By: #### C MP, LIPID #### [facility] [address] [place] [address] Dr. Lobo Flowers Cholesterol in HDL [Mass/Vol] 41 mg/dL Normal [facility] Comment on above: Performed By: #### C MP, LIPID #### [facility] [address] [place] [address] Dr. Lobo Flowers Cholesterol in LDL [Mass/Vol] 143.8 mg/dL Normal [facility] Comment on above: Performed By: #### C MP, LIPID #### [facility] [address] [place] [address] Dr. Lobo Flowers Cholesterol.total/Ch olesterol in HDL [Mass ratio] 5.1 {ratio} Normal [facility] Comment on above: Performed By: #### C MP, LIPID #### [facility] [address] [place] [address] Dr. Lobo Flowers HDL NORMAL > or = 60 mg/dl - LOW CARDIOVASCULAR RISK <40 mg/dl - HIGH CARDIOVASCULAR RISK Normal [facility] Comment on above: Performed By: #### C MP, LIPID #### [facility] [address] [place] [address] Dr. Lobo Flowers LDL CALC NORMAL SEE BELOW Normal [facility] Comment on above: Result Comment: <100 mg/dl OPTIMAL 100 - 129 mg/dl NEAR OR ABOVE OPTIMAL 130 - 159 mg/dl BORDERLINE HIGH 160 - 189 mg/dl HIGH >190 mg/dl VERY HIGH Performed By: #### C MP, LIPID #### [facility] [address] [address] [address] Lobo Flowers Triglyceride [Mass/Vol] 126 mg/dL Normal <=150 [facility] Comment on above: Performed By: #### C MP, LIPID #### [facility] [address] [address] [address] Lobo Flowers VLDL CALC 25.2 mg/dL Normal [facility] Comment on above: Performed By: #### C MP, LIPID #### [facility] [address] [place] [address] Dr. Lobo Flowers PROF 14(COMP METB)on 022 Albumin [Mass/Vol] 3.4 g/dL Critically low 3.5-5.0 [facility] Comment on above: Performed By: #### C MP, LIPID #### [facility] [address] [address] [address] Lobo Flowers Albumin/Globulin [Mass ratio] 0.7 {ratio} Normal [facility] Comment on above: Performed By: #### C MP, LIPID #### [facility] [address] [address] [address] Lobo Flowers ALP [Catalytic activity/Vol] 104 U/L Normal 38-126 [facility] Comment on above: Performed By: #### C MP, LIPID #### [facility] [address] [address] [address] Lobo Flowers ALT [Catalytic activity/Vol] 58 U/L Critically high 9-52 [facility] Comment on above: Performed By: #### C MP, LIPID #### [facility] [address] [address] [address] Lobo Flowers Anion gap [Moles/Vol] 10.4 mmol/L Normal [facility] Comment on above: Performed By: #### C MP, LIPID #### [facility] [address] [address] [address] Lobo Flowers AST [Catalytic activity/Vol] 59 U/L Critically high 14-36 [facility] Comment on above: Performed By: #### C MP, LIPID #### [facility] [address] [address] [address] Lobo Flowers Bilirubin [Mass/Vol] 0.7 mg/dL Normal 0.2-1.3 [facility] Comment on above: Performed By: #### C MP, LIPID #### [facility] [address] [address] [address] Lobo Flowers Calcium [Mass/Vol] 10.7 mg/dL Critically high 8.4-10.2 [facility] Comment on above: Performed By: #### C MP, LIPID #### [facility] [address] [address] [address] Lobo Flowers Chloride [Moles/Vol] 99 mmol/L Normal 98-107 [facility] Comment on above: Performed By: #### C MP, LIPID #### [facility] [address] [address] [address] Lobo Flowers CO2 [Moles/Vol] 32.4 mmol/L Critically high 22.0-30.0 [facility] Comment on above: Performed By: #### C MP, LIPID #### [facility] [address] [address] [address] Lobo Flowers Creatinine [Mass/Vol] 0.78 mg/dL Normal 0.52-1.04 [facility] Comment on above: Performed By: #### C MP, LIPID #### [facility] [address] [address] [address] Lobo Flowers EGFR-AF MONEGASQUE >60 Normal >=60 [facility] Comment on above: Performed By: #### C MP, LIPID #### [facility] [address] [address] [address] Lobo Flowers EGFR-NON AF MONEGASQUE >60 Normal >=60 [facility] Comment on above: Performed By: #### C MP, LIPID #### [facility] [address] [address] [address] Lobo Flowers Globulin (S) [Mass/Vol] 5.0 g/dL Normal [facility] Comment on above: Performed By: #### C MP, LIPID #### [facility] [address] [address] [address] Lobo Flowers Glucose [Mass/Vol] 146 mg/dL Critically high 74-106 [facility] Comment on above: Performed By: #### C MP, LIPID #### [facility] [address] [address] [address] Lobo Flowers Potassium [Moles/Vol] 3.8 mmol/L Normal 3.4-5.0 [facility] Comment on above: Performed By: #### C MP, LIPID #### [facility] [address] [place] [address] Dr. Lobo Flowers Protein [Mass/Vol] 8.4 g/dL Critically high 6.1-8.2 [facility] Comment on above: Performed By: #### C MP, LIPID #### [facility] [address] [address] [address] Lobo Flowers Sodium [Moles/Vol] 138 mmol/L Normal 137-145 [facility] [place] [facility] Comment on above: Performed By: #### C MP, LIPID #### [facility] [address] [address] [address] Lobo Flowers Urea nitrogen [Mass/Vol] 11.0 mg/dL Normal 7.0-17.0 [facility] Comment on above: Performed By: #### C MP, LIPID #### [facility] [address] [address] [address] Lobo Flowers Urea nitrogen/Creatinine [Mass ratio] 14.1 mg/mg Normal [facility] Comment on above: Performed By: #### C MP, LIPID #### [facility] [address] [address] [address] Lobo Flowers Encounters Encounter Date Encounter Type Care Provider Facility Start: 05-05-2025 [facility] Patricia Min Facility: [facility] Start: 12-06-2024 ambulatory Patricia L Mechelle Facility: [facility] Start: 06-07-2024 End: 06-07-2024 ambulatory Patricia L Mechelle Facility: [facility]rique[facility] Start: 05-03-2024 End: 05-03-2024 ambulatory Patricia L Mechelle Facility: [facility] Start: 12-02-2023 End: 12-02-2023 ambulatory Patricia L Mechelle Facility: [facility] Start: 06-03-2022 End: 06-03-2022 ambulatory ANGELICA BONNER Facility:[facility] Start: 08-24-2021 End: 08-25-[address] DUSTIN MOSHER Facility:[facility] Start: 08-13-2021 End: 08-14-[address] DUSTIN MOSHER Facility:[facility] Start: 08-13-2021 End: 08-14-[address] DUSTIN MOSHER Facility:[facility] Start: 08-08-2021 End: 08-09-[address] DUSTIN MOSHER Facility:[facility] Start: 07-31-2021 End: 08-01-[address] DUSTIN MOSHER Facility:[facility] Payers Date Payer Category Payer Medicare [id number] 1958 Private Health Insurance CLI [id number] 1955 Unknown [id number] 2.16.84 [id number] 1955 Unknown [id number] 2.16.84 [id number] 1955 Unknown [id number] 2.16.84 [id number] 1955 Unknown [id number] 2.16.84 [id number] 1955 Unknown [id number] 2.16.84 [id number] 1955 Unknown [id number] 2.16.84 [id number] 1955 Unknown [id number] 2.16.8 [id number] 1955 Unknown [id number] 2.16.8 [id number] 1955 Unknown [id number] 2.16.8 [id number] 1955 Unknown [id number] 2.16.8 [id number] 1955 Unknown [id number] 2.16.8 [id number] Clinical Note 05-03-2024 Note Date & Type Note Facility 05-03-2024 Note Patient Education Emergency Medicine Heart Attack A heart attack occurs when blood and oxygen supply to the heart is cut off. A heart attack can cause damage to the heart that cannot be fixed. A heart attack is also called a myocardial infarction, or [place]. If you think you are having a [...] these instructions at home: Medicines ? Take imxg-kpa-mryigdi and prescription medicines only as told by [...] beats. ? You (more content not included)... [facility] Summary Purpose Family History No Family History Records FoundNo Family History Records Found Advance Directives No Advanced Directives Records FoundNo Advanced Directives Records Found Additional Source Comments INFORMATION SOURCE (unrecogn ized section and content) DATE CREATED AUTHOR 06/05/2022 [facility] DATE CREATED AUTHOR AUTHOR'S ORGANIZ ATION 06/09/2024 [facility] FOR RECORDS PERTAINING TO PATIENTS WHO ARE [...] BE BASED ON THE PRIMARY CLINICAL RECORDS. [employer] provides no warranty or guarantee of the accuracy or completeness of information in this document.
--- NOTE | 2024-06-16 07:48 | US_ITS ---
[address] [address] Patient Name: ELIS WU MRN: [id number] date: 1955 Sex: F Assigned Patient Location: Current Patient Location: US Accession/Order Number: [id number] Exam Date: 06/16/2024 08:30 Report Date: 06/16/2024 09:27 At the request of: SHAKILA VANG Procedure: US breast vac bx w/ clip LT EXAMINATION: US breast vac bx w/ clip LT HISTORY: Left Breast Mass COMPARISON: No relevant comparison available. TECHNIQUE: After obtaining informed consent, ultrasound-guided fine needle aspiration was performed in the usual sterile manner. FINDINGS: IMAGING: Ultrasound. BIOPSY NEEDLE: 13-gauge mammotome vacuum assisted core LOCATION: 1.5 cm left 2:00 lobular breast mass SPECIMEN TYPE: 6 core samples LOCAL ANESTHETIC: 3 cc 1% buffered lidocaine superficial. 8 cc 1% buffered lidocaine with epinephrine deep COMPLICATIONS: None. LABORATORY: Samples sent to pathology OTHER: Negative. PATHOLOGY: Pending. An addendum will be added when results are available. US/US breast vac bx w/ clip LT IMPRESSION: 1. Uneventful ultrasound guided left breast mass core biopsy 2. Pathology results are pending. Electronically authenticated by: ELIEL ELLER Date: 06/16/2024 09:27
[2024-06-16 07:50] VITALS: BP 127/80; PULSE 60; O2SAT 96
[2024-06-16] MEDS: LIDOCAINE HCL 10 ML, SODIUM BICARBONATE 1 MEQ INJ (08:40)
[2024-06-16] MEDS: LIDOCAINE HCL/EPINEPHRINE 10 ML, SODIUM BICARBONATE 1 MEQ INJ (08:40)
== END 2024-06-16 09:15 | disposition home or self-care (01) ==
LOC: US 07:39
PROVIDERS: Radiology Diagnostic Radiology; PCP Nurse Practitioner; Visit Provider Nurse Practitioner
DX: C50.412 Malignant neoplasm of upper-outer quadrant of left female breast (principal)
CPT/HCPCS: 19083; 77065; 88305; 88341; 88342; 88360